=== PATIENT | male | born 1940 | race Caucasian/White ===

== ENCOUNTER → 2016-09-01 | Outpatient (CLI) | payer OTHER ==
[~2016-09-01] MED LIST: LANS15CA21 PO; NAPR-505 PO; SIMV-8 PO
[2016-09-01 13:44] LABS: Urine RBC None Seen /hpf (0 - 3)
[2016-09-01 13:47] LABS: Basophils # (auto) 0.1 uL; Basophils % (auto) 0.7 % (0.0-2.0); Eosinophils # (auto) 0.4 uL; Eosinophils % (auto) 5.4 % (0.0-7.0); Hematocrit 48.1 % (41.0-53.0); Hemoglobin 15.9 g/dL (13.5-17.5); Lymphocytes # (auto) 2.6 uL; Lymphocytes % (auto) 31.8 % (10.0-50.0); Mean Corpuscular Hemoglobin 30.9 pg (28.0-32.0); Mean Corpuscular Hgb Conc. 33.2 g/dL (32.0-36.0); Mean Corpuscular Volume 93.1 fL (80.0-100.0); Mean Platelet Volume 8.6 fL (7.4-10.4); Monocytes # (auto) 0.7 uL; Monocytes % (auto) 8.8 % (0.0-12.0); Neutrophils # (auto) 4.4 uL; Neutrophils % (auto) 53.3 % (37.0-80.0); Platelet Count (auto) 243 10^3/uL (140-450); Red Cell Distribution Width 14.4 % (11.6-16.0); White Blood Cell 8.3 10^3/uL (4.4-10.8)
[2016-09-01 13:50] LABS: Urine Bilirubin Negative (Negative); Urine Blood Negative /uL (Negative); Urine Color Yellow (Yellow); Urine Glucose Normal (Normal); Urine Ketone Negative (Negative); Urine Nitrite Negative (Negative); Urine Urobilinogen Normal (Negative)
[2016-09-01 14:01] LABS: INR 1.04 (0.9-1.15); Partial Thromboplastin Time 26.8 sec (22.64-33.71); Prothrombin Time 10.7 sec (9.37-12.3)
[2016-09-01 14:34] LABS: Albumin 3.9 g/dL (3.4-5.0); BUN/Creatinine Ratio 18.4; Bilirubin, Total 0.5 mg/dL (0.2-1.0); Potassium 4.1 mmol/L (3.5-5.1); Total Protein 7.7 g/dL (6.4-8.2)
== END | disposition home or self-care (01) ==
LOC: LAB 12:49
PROVIDERS: ATTEND Urology
DX: Z01.818 Encounter for other preprocedural examination (principal)
CPT/HCPCS: 36415; 80053; 81001; 85025; 85610; 85730

== ENCOUNTER → 2016-09-22 | Outpatient (CLI) | payer OTHER ==
[2016-09-22 11:53] LABS: Urine Bilirubin Negative (Negative); Urine Color Yellow (Yellow); Urine Glucose Normal (Normal); Urine Ketone Negative (Negative); Urine Mucus FEW (None Seen); Urine Nitrite Negative (Negative); Urine RBC 142 /hpf (0 - 3); Urine pH 5.5 (5.0-8.0)
[2016-09-22 12:03] LABS: INR 1.04 (0.9-1.15); Partial Thromboplastin Time 26.8 sec (22.64-33.71); Prothrombin Time 10.7 sec (9.37-12.3)
[2016-09-22 12:04] LABS: Urine Blood 3+ /uL (Negative)
[2016-09-22 12:14] LABS: Albumin 3.8 g/dL (3.4-5.0); BUN/Creatinine Ratio 23.9; Bilirubin, Total 0.6 mg/dL (0.2-1.0); Calcium 9.1 mg/dL (8.5-10.1); Potassium 4.3 mmol/L (3.5-5.1); Total Protein 7.7 g/dL (6.4-8.2)
[2016-09-22 12:51] LABS: Basophils # (auto) 0.1 uL; Basophils % (auto) 0.8 % (0.0-2.0); Eosinophils # (auto) 0.3 uL; Eosinophils % (auto) 5.4 % (0.0-7.0); Lymphocytes # (auto) 2.3 uL; Lymphocytes % (auto) 36.9 % (10.0-50.0); Monocytes # (auto) 0.4 uL; Monocytes % (auto) 6.6 % (0.0-12.0); Neutrophils # (auto) 3.1 uL; Neutrophils % (auto) 50.3 % (37.0-80.0)
[2016-09-22 13:02] LABS: Hematocrit 53.4 % (41.0-53.0); Mean Corpuscular Hemoglobin 29.7 pg (28.0-32.0); Mean Corpuscular Hgb Conc. 31.8 g/dL (32.0-36.0); Mean Corpuscular Volume 93.3 fL (80.0-100.0); Mean Platelet Volume 8.3 fL (7.4-10.4); Platelet Count (auto) 270 10^3/uL (140-450); White Blood Cell 6.2 10^3/uL (4.4-10.8)
== END | disposition home or self-care (01) ==
LOC: LAB 10:56
PROVIDERS: ATTEND Urology
DX: Z01.818 Encounter for other preprocedural examination (principal)
CPT/HCPCS: 36415; 80053; 81001; 85025; 85610; 85730

== ENCOUNTER 2016-09-26 06:51 | Day surgery (SDC) | payer OTHER ==
[~2016-09-26] VITALS: Ht 188 cm; Wt 101.2 kg
[2016-09-26] MEDS ORDERED: cefTRIAXone SOD 1,000 MG VL ONE (07:18)
[2016-09-26] MEDS ORDERED: MIDAZOLAM HCL 1MG/1ML-2 ML VIAL ONE (07:44)
[2016-09-26] MEDS ORDERED: fentaNYL CITRATE 100 MCG/2 ML VL ONE (07:44)
[2016-09-26] MEDS ORDERED: MEPERIDINE HCL (50 MG/ML) 1 ML VIAL ONE (07:45)
[2016-09-26] MEDS ORDERED: PROPOFOL 10 MG/ML 20 ML IV ONE (07:55)
[2016-09-26] MEDS ORDERED: DEXAMETHASONE SOD PHOS 10MG/1ML VIAL INJ ONE (07:55)
[2016-09-26] MEDS ORDERED: MORPHINE SULF INJ 2 MG/ML SYRINGE 1ML IV PRN (08:30)
[2016-09-26] MEDS ORDERED: ePHEDrine SULFATE 50 MG/ML AMP IV PRN (08:30)
[2016-09-26] MEDS ORDERED: HYDROmorphone HCL 2 MG/ML VL IV PRN (08:30)
[2016-09-26] MEDS ORDERED: MIDAZOLAM HCL 1MG/1ML-2 ML VIAL IV PRN (08:30)
[2016-09-26] MEDS ORDERED: hydrALAZINE HCL 20 MG/ML VL IV PRN (08:30)
[2016-09-26] MEDS ORDERED: KETOROLAC TROMETH 30 MG/ML 1ML VIAL IV ONE (08:30)
[2016-09-26] MEDS ORDERED: ONDANSETRON HCL 4 MG/2 ML VIAL IV ONE (08:30)
[2016-09-26] MEDS ORDERED: LABETALOL HCL 5 MG/ML 4ML SYRINGE IV PRN (08:30)
[2016-09-26 09:36] VITALS: BP 163/88
== END 2016-09-26 09:46 | disposition home or self-care (01) ==
LOC: SUR 06:51
PROVIDERS: ATTEND Urology
DX: N20.0 Calculus of kidney (principal); K21.9 Gastro-esophageal reflux disease without esophagitis; M19.90 Unspecified osteoarthritis, unspecified site; I10 Essential (primary) hypertension; E78.00 Pure hypercholesterolemia, unspecified; E78.5 Hyperlipidemia, unspecified; I25.10 Atherosclerotic heart disease of native coronary artery without angina pectoris; M17.10 Unilateral primary osteoarthritis, unspecified knee
CPT/HCPCS: 50590; 52332; C1769; C2617; J0696; J1100; J2175; J2250; J2704; J3010; J7030

== ENCOUNTER → 2016-10-23 | Outpatient (CLI) | payer OTHER ==
[2016-10-23 14:10] LABS: Basophils # (auto) 0 uL; Basophils % (auto) 0.5 % (0.0-2.0); DEFINITIVE VIEW TRANSMISSION; Eosinophils # (auto) 0.7 uL; Eosinophils % (auto) 8.7 % (0.0-7.0); Hematocrit 45.5 % (41.0-53.0); Hemoglobin 14.9 g/dL (13.5-17.5); Lymphocytes # (auto) 2.2 uL; Mean Corpuscular Hemoglobin 30.5 pg (28.0-32.0); Mean Corpuscular Hgb Conc. 32.7 g/dL (32.0-36.0); Mean Corpuscular Volume 93.2 fL (80.0-100.0); Mean Platelet Volume 8.7 fL (7.4-10.4); Monocytes # (auto) 0.7 uL; Monocytes % (auto) 7.9 % (0.0-12.0); Neutrophils # (auto) 4.7 uL; Neutrophils % (auto) 56.9 % (37.0-80.0); Platelet Count (auto) 258 10^3/uL (140-450); Red Cell Distribution Width 14.9 % (11.6-16.0); White Blood Cell 8.3 10^3/uL (4.4-10.8)
[2016-10-23 14:25] LABS: Urine Bilirubin Negative (Negative); Urine Color Yellow (Yellow); Urine Glucose Normal (Normal); Urine Ketone Negative (Negative); Urine Mucus FEW (None Seen); Urine Nitrite Negative (Negative); Urine RBC 519 /hpf (0 - 3); Urine Squamous Epithelial Cell FEW /hpf (<5); Urine Urobilinogen Normal (Negative)
[2016-10-23 14:35] LABS: Urine Blood 2+ /uL (Negative)
[2016-10-23 14:37] LABS: INR 1.02 (0.9-1.15); Prothrombin Time 10.5 sec (9.37-12.3)
[2016-10-23 14:51] LABS: BUN/Creatinine Ratio 20.9; Bilirubin, Total 0.6 mg/dL (0.2-1.0); Calcium 9.6 mg/dL (8.5-10.1); Total Protein 8.1 g/dL (6.4-8.2)
== END | disposition home or self-care (01) ==
LOC: LAB 11:11
PROVIDERS: ATTEND Urology
DX: Z01.818 Encounter for other preprocedural examination (principal)
CPT/HCPCS: 36415; 80053; 81001; 85025; 85610; 85730

== ENCOUNTER → 2016-10-24 | Day surgery (SDC) | payer OTHER ==
[~2016-10-24] VITALS: Ht 190.5 cm; Wt 98.9 kg
[~2016-10-24] MED LIST changes: +HYDROmorphone HCL 2 MG/ML VL IV PRN; +KETOROLAC TROMETH 30 MG/ML 1ML VIAL IV ONE; -LANS15CA21 PO; +MIDAZOLAM HCL 1MG/1ML-2 ML VIAL ONE; +ONDANSETRON HCL 4 MG/2 ML VIAL ONE; +PROMETHAZINE HCL 25 MG/ML 1ML IM ONE; +PROPOFOL 10 MG/ML 20 ML IV ONE; +cefTRIAXone 1GM/50ML D5W 50 ML IV ONE; +fentaNYL CITRATE 100 MCG/2 ML VL ONE
[2016-10-24] MEDS: LABETALOL HCL 5 MG/ML 4ML SYRINGE IV PRN ×3 (09:04→10:15)
[2016-10-24 11:17] VITALS: BP 166/88
== END ==
LOC: SUR 06:09
PROVIDERS: ATTEND Urology
DX: N20.0 Calculus of kidney (principal); Z90.49 Acquired absence of other specified parts of digestive tract
CPT/HCPCS: 50590; 52310; J0696; J2250; J2405; J2704; J3010; J3490; J7030

== ENCOUNTER → 2016-12-28 | Outpatient (CLI) | payer OTHER ==
[~2016-12-28] MED LIST changes: -HYDROmorphone HCL 2 MG/ML VL IV PRN; -KETOROLAC TROMETH 30 MG/ML 1ML VIAL IV ONE; -MIDAZOLAM HCL 1MG/1ML-2 ML VIAL ONE; -ONDANSETRON HCL 4 MG/2 ML VIAL ONE; -PROMETHAZINE HCL 25 MG/ML 1ML IM ONE; -PROPOFOL 10 MG/ML 20 ML IV ONE; -cefTRIAXone 1GM/50ML D5W 50 ML IV ONE; -fentaNYL CITRATE 100 MCG/2 ML VL ONE
[2016-12-28 09:02] LABS: Basophils # (auto) 0.1 uL; Basophils % (auto) 0.8 % (0.0-2.0); DEFINITIVE VIEW TRANSMISSION; Eosinophils # (auto) 0.8 uL; Eosinophils % (auto) 8.7 % (0.0-7.0); Hematocrit 46.5 % (41.0-53.0); Hemoglobin 15.8 g/dL (13.5-17.5); Lymphocytes # (auto) 2.4 uL; Lymphocytes % (auto) 27.2 % (10.0-50.0); Mean Corpuscular Hemoglobin 30.6 pg (28.0-32.0); Mean Corpuscular Hgb Conc. 34.1 g/dL (32.0-36.0); Mean Corpuscular Volume 89.9 fL (80.0-100.0); Mean Platelet Volume 8.3 fL (7.4-10.4); Monocytes # (auto) 0.6 uL; Monocytes % (auto) 6.7 % (0.0-12.0); Neutrophils % (auto) 56.6 % (37.0-80.0); Platelet Count (auto) 244 10^3/uL (140-450); Red Cell Distribution Width 15.1 % (11.6-16.0); White Blood Cell 8.8 10^3/uL (4.4-10.8)
[2016-12-28 09:06] LABS: Urine Bilirubin Negative (Negative); Urine Blood Negative /uL (Negative); Urine Color Yellow (Yellow); Urine Glucose Normal (Normal); Urine Ketone Negative (Negative); Urine Mucus FEW (None Seen); Urine Nitrite Negative (Negative); Urine RBC 1 /hpf (0 - 3); Urine Urobilinogen Normal (Negative); Urine pH 5.5 (5.0-8.0)
[2016-12-28 09:26] LABS: Albumin 3.9 g/dL (3.4-5.0); BUN/Creatinine Ratio 31.8; Bilirubin, Total 0.7 mg/dL (0.2-1.0); Calcium 8.8 mg/dL (8.5-10.1); Potassium 4.2 mmol/L (3.5-5.1); Total Protein 7.9 g/dL (6.4-8.2)
== END | disposition home or self-care (01) ==
LOC: LAB 07:56
PROVIDERS: ATTEND Family Medicine
DX: E78.5 Hyperlipidemia, unspecified (principal)
CPT/HCPCS: 36415; 80053; 80061; 81001; 82607; 85025

== ENCOUNTER → 2017-04-27 | Day surgery (SDC) | payer OTHER ==
[2017-04-24 13:52] LABS: Basophils # (auto) 0.1 uL; Basophils % (auto) 0.8 % (0.0-2.0); Eosinophils # (auto) 0.5 uL; Eosinophils % (auto) 5.8 % (0.0-7.0); Hematocrit 46.8 % (41.0-53.0); Hemoglobin 15.7 g/dL (13.5-17.5); Lymphocytes # (auto) 2.6 uL; Lymphocytes % (auto) 33.6 % (10.0-50.0); Mean Corpuscular Hemoglobin 31.8 pg (28.0-32.0); Mean Corpuscular Hgb Conc. 33.6 g/dL (32.0-36.0); Mean Corpuscular Volume 94.6 fL (80.0-100.0); Mean Platelet Volume 7.7 fL (6.9-10.8); Monocytes # (auto) 0.5 uL; Neutrophils # (auto) 4.2 uL; Neutrophils % (auto) 53.8 % (37.0-80.0); Nucleated Red Blood Cells % 0.1 %; Platelet Count (auto) 187 10^3/uL (140-450); Red Cell Distribution Width 14.7 % (11.8-14.3); White Blood Cell 7.9 10^3/uL (4.4-10.8)
[2017-04-24 14:06] LABS: INR 0.97 (0.9-1.15); Partial Thromboplastin Time 27.2 sec (22.64-33.71); Prothrombin Time 10.6 sec (9.37-12.3)
[2017-04-24 14:08] LABS: Urine Bilirubin Negative (Negative); Urine Blood Negative /uL (Negative); Urine Color Yellow (Yellow); Urine Glucose Normal (Normal); Urine Hyaline Cast FEW /lpf (0 - 2); Urine Ketone Negative (Negative); Urine Mucus FEW (None Seen); Urine Nitrite Negative (Negative); Urine RBC 1 /hpf (0 - 3); Urine Urobilinogen Normal (Negative)
[2017-04-24 14:18] LABS: BUN/Creatinine Ratio 20.4; Calcium 9.3 mg/dL (8.5-10.1)
[2017-04-24 14:21] LABS: Bilirubin, Total 0.6 mg/dL (0.2-1.0); Total Protein 7.8 g/dL (6.4-8.2)
[~2017-04-27] VITALS: Ht 188 cm; Wt 102.1 kg
[~2017-04-27] MED LIST changes: +BUPIVACAINE 0.25% INJ 50ML VIAL ONE; +BUPIVACAINE 0.5% P/F INJ 10 ML VIAL ONE; +BUPIVACAINE 0.75% INJ 10ML MPV SDV IJ ONE; +BUPIVACAINE W/ EPINEPH 0.25% INJ 50ML MDV ONE; +BUPIVACAINE W/ EPINEPH 0.5% MPF 30ML VIAL IJ ONE; +CLINDAMYCIN 600MG IV 50 ML IV ONE; +LIDOCAINE 1% HCL (LOCAL ANESTH.) INJ 20ML MDV ONE; +MIDAZOLAM HCL 1MG/1ML-2 ML VIAL ONE; +PROPOFOL 10 MG/ML 20 ML IV ONE; +fentaNYL CITRATE 100 MCG/2 ML VL IV PRN; +fentaNYL CITRATE 100 MCG/2 ML VL ONE; +hydrALAZINE HCL 20 MG/ML VL IV PRN
[2017-04-27 09:14] VITALS: BP 150/77
== END | disposition home or self-care (01) ==
LOC: SUR 06:09
PROVIDERS: ATTEND Orthopaedic Surgery
DX: G56.01 Carpal tunnel syndrome, right upper limb (principal); S63.8X1A Sprain of other part of right wrist and hand, initial encounter; X58.XXXA Exposure to other specified factors, initial encounter; Y93.89 Activity, other specified; Y92.89 Other specified places as the place of occurrence of the external cause; Y99.8 Other external cause status; Z88.0 Allergy status to penicillin; Z88.3 Allergy status to other anti-infective agents; Z90.49 Acquired absence of other specified parts of digestive tract
CPT/HCPCS: 26037; 36415; 64721; 80053; 81001; 85025; 85610; 85730; J2001; J2250; J2704; J3010; J3490

== ENCOUNTER 2017-06-05 06:13 | Day surgery (SDC) | payer OTHER ==
[2017-06-01 11:58] LABS: Basophils # (auto) 0.1 uL; Basophils % (auto) 1.2 % (0.0-2.0); Eosinophils # (auto) 0.5 uL; Eosinophils % (auto) 5.9 % (0.0-7.0); Hematocrit 47.4 % (41.0-53.0); Hemoglobin 16.3 g/dL (13.5-17.5); Lymphocytes # (auto) 2.7 uL; Lymphocytes % (auto) 30.3 % (10.0-50.0); Mean Corpuscular Hemoglobin 32.2 pg (28.0-32.0); Mean Corpuscular Hgb Conc. 34.4 g/dL (32.0-36.0); Mean Corpuscular Volume 93.5 fL (80.0-100.0); Mean Platelet Volume 8.1 fL (6.9-10.8); Monocytes # (auto) 0.8 uL; Monocytes % (auto) 9.1 % (0.0-12.0); Neutrophils # (auto) 4.7 uL; Neutrophils % (auto) 53.5 % (37.0-80.0); Nucleated Red Blood Cells % 0.1 %; Platelet Count (auto) 193 10^3/uL (140-450); White Blood Cell 8.8 10^3/uL (4.4-10.8)
[2017-06-01 12:03] LABS: Urine Bilirubin Negative (Negative); Urine Blood Negative /uL (Negative); Urine Color Yellow (Yellow); Urine Glucose Normal (Normal); Urine Ketone Negative (Negative); Urine Mucus FEW (None Seen); Urine Nitrite Negative (Negative); Urine RBC 1 /hpf (0 - 3); Urine Squamous Epithelial Cell FEW /hpf (<5); Urine Urobilinogen Normal (Negative); Urine pH 5.5 (5.0-8.0)
[2017-06-01 12:11] LABS: BUN/Creatinine Ratio 22.2; Calcium 9.3 mg/dL (8.5-10.1); Potassium 4.2 mmol/L (3.5-5.1)
[2017-06-01 12:13] LABS: INR 0.96 (0.9-1.15); Partial Thromboplastin Time 28.9 sec (22.64-33.71); Prothrombin Time 10.5 sec (9.37-12.3)
[~2017-06-05] VITALS: Ht 188 cm; Wt 105.2 kg
[~2017-06-05 06:13] MED LIST changes: -BUPIVACAINE 0.25% INJ 50ML VIAL ONE; -BUPIVACAINE 0.5% P/F INJ 10 ML VIAL ONE; -BUPIVACAINE 0.75% INJ 10ML MPV SDV IJ ONE; -BUPIVACAINE W/ EPINEPH 0.25% INJ 50ML MDV ONE; -BUPIVACAINE W/ EPINEPH 0.5% MPF 30ML VIAL IJ ONE; -CLINDAMYCIN 600MG IV 50 ML IV ONE; -LIDOCAINE 1% HCL (LOCAL ANESTH.) INJ 20ML MDV ONE; -MIDAZOLAM HCL 1MG/1ML-2 ML VIAL ONE; -PROPOFOL 10 MG/ML 20 ML IV ONE; -fentaNYL CITRATE 100 MCG/2 ML VL IV PRN; -fentaNYL CITRATE 100 MCG/2 ML VL ONE; -hydrALAZINE HCL 20 MG/ML VL IV PRN
[2017-06-05] MEDS ORDERED: BUPIVACAINE W/ EPINEPH 0.25% INJ 50ML MDV ONE (06:35)
[2017-06-05] MEDS ORDERED: BUPIVACAINE 0.25% INJ 50ML VIAL ONE (06:36)
[2017-06-05] MEDS ORDERED: CLINDAMYCIN 600MG IV 50 ML IV ONE (07:28)
[2017-06-05] MEDS ORDERED: LIDOCAINE 1% HCL (LOCAL ANESTH.) INJ 20ML MDV ONE (07:32)
[2017-06-05] MEDS ORDERED: fentaNYL CITRATE 100 MCG/2 ML VL ONE (07:33)
[2017-06-05] MEDS ORDERED: LIDOCAINE HCL 2 %PF INJ 10ML AMP IJ ONE (07:34)
[2017-06-05] MEDS ORDERED: PROPOFOL 10 MG/ML 20 ML IV ONE (07:34)
[2017-06-05] MEDS ORDERED: METOPROLOL TARTRATE 1MG/1ML-5ML VIAL IV ONE (07:37)
[2017-06-05] MEDS ORDERED: diphenhdrAMINE HCL 50 MG/1 ML VL ONE (07:43)
[2017-06-05 08:46] VITALS: BP 161/93
== END 2017-06-05 08:56 | disposition home or self-care (01) ==
LOC: SUR 06:13
PROVIDERS: ATTEND Orthopaedic Surgery
DX: G56.02 Carpal tunnel syndrome, left upper limb (principal); M72.8 Other fibroblastic disorders; D69.6 Thrombocytopenia, unspecified; Z90.49 Acquired absence of other specified parts of digestive tract; Z88.0 Allergy status to penicillin
CPT/HCPCS: 25020; 36415; 64721; 80048; 81001; 85025; 85610; 85730; J1200; J2001; J2704; J3010; J3490

== ENCOUNTER → 2017-12-14 | Outpatient (CLI) | payer OTHER ==
[2017-12-14 09:01] LABS: Basophils # (auto) 0.1 uL; Basophils % (auto) 0.7 % (0.0-2.0); Eosinophils # (auto) 0.3 uL; Eosinophils % (auto) 3.9 % (0.0-7.0); Hematocrit 48.1 % (41.0-53.0); Hemoglobin 16.3 g/dL (13.5-17.5); Lymphocytes # (auto) 2.1 uL; Lymphocytes % (auto) 28.7 % (10.0-50.0); Mean Corpuscular Hemoglobin 31.7 pg (28.0-32.0); Mean Corpuscular Volume 93.4 fL (80.0-100.0); Monocytes # (auto) 0.6 uL; Monocytes % (auto) 8.9 % (0.0-12.0); Neutrophils # (auto) 4.2 uL; Neutrophils % (auto) 57.8 % (37.0-80.0); Platelet Count (auto) 193 10^3/uL (140-450); Red Blood Cells 5.15 10^6/uL (4.5-5.90); White Blood Cell 7.3 10^3/uL (4.4-10.8)
[2017-12-14 09:06] LABS: Urine Bacteria FEW /hpf (None Seen); Urine Blood Negative /uL (Negative); Urine Hyaline Cast FEW /lpf (0 - 2); Urine Mucus FEW (None Seen); Urine Specific Gravity 1.022 (1.001-1.035); Urine WBC 2 /hpf (0 - 3)
[2017-12-14 09:29] LABS: Bilirubin, Total 0.7 mg/dL (0.2-1.0); Calcium 9.6 mg/dL (8.5-10.1); Potassium 4.4 mmol/L (3.5-5.1); Total Protein 8.1 g/dL (6.4-8.2)
== END | disposition home or self-care (01) ==
LOC: LAB 07:53
PROVIDERS: ATTEND Family Medicine
DX: E55.9 Vitamin D deficiency, unspecified (principal); E78.5 Hyperlipidemia, unspecified; N40.0 Benign prostatic hyperplasia without lower urinary tract symptoms; I10 Essential (primary) hypertension; E78.00 Pure hypercholesterolemia, unspecified
CPT/HCPCS: 36415; 80053; 80061; 81001; 82306; 84153; 84154; 85025

== ENCOUNTER → 2018-03-21 | Outpatient (CLI) | payer OTHER ==
[2018-03-21 14:44] LABS: Calcium 8.9 mg/dL (8.5-10.1); Potassium 3.9 mmol/L (3.5-5.1)
== END | disposition home or self-care (01) ==
LOC: LAB 14:09
PROVIDERS: ATTEND Urology
DX: C61 Malignant neoplasm of prostate (principal)
CPT/HCPCS: 36415; 80048

== ENCOUNTER → 2018-03-22 | Outpatient (CLI) | payer OTHER ==
[~2018-03-22] MED LIST changes: +IOHEXOL 300 MG/ML 100ML BOTTLE IJ ONE
== END | disposition home or self-care (01) ==
LOC: XY 07:33
PROVIDERS: ATTEND Urology
DX: C61 Malignant neoplasm of prostate (principal); I70.90 Unspecified atherosclerosis; N20.0 Calculus of kidney; I77.811 Abdominal aortic ectasia; Z88.0 Allergy status to penicillin; Z88.1 Allergy status to other antibiotic agents
CPT/HCPCS: 74177; 78306; A9503; Q9967

== ENCOUNTER 2018-07-28 01:48 | Emergency (ER) | payer OTHER, MEDICARE ==
[~2018-07-28] VITALS: Ht 188 cm; Wt 99.8 kg
[~2018-07-28 01:48] MED LIST changes: -IOHEXOL 300 MG/ML 100ML BOTTLE IJ ONE
[2018-07-28 08:57] LABS: Urine Bacteria NONE SEEN /hpf (None Seen); Urine Blood 2+ /uL (Negative); Urine Specific Gravity 1.024 (1.001-1.035); Urine WBC 7 /hpf (0 - 3)
[2018-07-28 09:21] LABS: Basophils # (auto) 0.1 uL; Basophils % (auto) 0.6 % (0.0-2.0); Eosinophils # (auto) 0.2 uL; Eosinophils % (auto) 2.2 % (0.0-7.0); Hematocrit 49.9 % (41.0-53.0); Hemoglobin 16.8 g/dL (13.5-17.5); Lymphocytes # (auto) 1.2 uL; Lymphocytes % (auto) 12.2 % (10.0-50.0); Mean Corpuscular Hemoglobin 32.4 pg (28.0-32.0); Mean Corpuscular Hgb Conc. 33.7 g/dL (32.0-36.0); Mean Corpuscular Volume 96.2 fL (80.0-100.0); Monocytes % (auto) 10.2 % (0.0-12.0); Neutrophils # (auto) 7.4 uL; Neutrophils % (auto) 74.8 % (37.0-80.0); Platelet Count (auto) 190 10^3/uL (140-450); Red Blood Cells 5.19 10^6/uL (4.5-5.90); Red Cell Distribution Width 14.4 % (11.8-14.3); White Blood Cell 9.9 10^3/uL (4.4-10.8)
[2018-07-28 09:25] LABS: Albumin 4.4 g/dL (3.4-5.0); BUN/Creatinine Ratio 19.2; Calcium 9.2 mg/dL (8.5-10.1); Magnesium 2.6 mg/dL (1.6-2.6)
[2018-07-28 10:03] LABS: Bilirubin, Total 1.6 mg/dL (0.2-1.0); Potassium 4.1 mmol/L (3.5-5.1); Total Protein 8.5 g/dL (6.4-8.2)
[2018-07-28] MEDS ORDERED: SODIUM CHLORIDE 0.9% 1,000 ML IV ONE (11:27)
[2018-07-28] MEDS ORDERED: HYDROmorphone HCL 2 MG/ML VL IV ONE (11:30)
[2018-07-28] MEDS ORDERED: PROMETHAZINE HCL 25 MG/ML 1ML IV PRN (11:30)
[2018-07-28 13:52] VITALS: BP 150/79
== END 2018-07-28 15:47 | disposition home or self-care (01) ==
LOC: ER 01:48
DX: N20.1 Calculus of ureter (principal); K76.0 Fatty (change of) liver, not elsewhere classified; R74.8 Abnormal levels of other serum enzymes; E78.5 Hyperlipidemia, unspecified; Z85.46 Personal history of malignant neoplasm of prostate; Z90.49 Acquired absence of other specified parts of digestive tract; Z88.0 Allergy status to penicillin
CPT/HCPCS: 36415; 71045; 74176; 80053; 81001; 83690; 83735; 83880; 84443; 84484; 85025; 93005; 96374; 96375; 99284; J1170; J2550; J7030

== ENCOUNTER → 2018-08-28 | Outpatient (CLI) | payer MEDICARE, OTHER | END | disposition home or self-care (01) | LOC: XYW 08:47 | PROVIDERS: ATTEND Orthopaedic Surgery | DX: Z01.818 Encounter for other preprocedural examination (principal); M16.12 Unilateral primary osteoarthritis, left hip | CPT/HCPCS: 93306 ==

== ENCOUNTER → 2018-09-05 | Outpatient (CLI) | payer OTHER ==
[2018-09-05 08:18] LABS: Basophils # (auto) 0.1 uL; Basophils % (auto) 1.2 % (0.0-2.0); Eosinophils # (auto) 0.7 uL; Eosinophils % (auto) 9.8 % (0.0-7.0); Hematocrit 44.1 % (41.0-53.0); Hemoglobin 15.4 g/dL (13.5-17.5); Lymphocytes # (auto) 1.3 uL; Lymphocytes % (auto) 18.6 % (10.0-50.0); Mean Corpuscular Hemoglobin 32.9 pg (28.0-32.0); Mean Corpuscular Volume 93.9 fL (80.0-100.0); Monocytes # (auto) 0.5 uL; Monocytes % (auto) 7.6 % (0.0-12.0); Neutrophils # (auto) 4.4 uL; Neutrophils % (auto) 62.8 % (37.0-80.0); Nucleated Red Blood Cells % 0.1 %; Platelet Count (auto) 195 10^3/uL (140-450); Red Cell Distribution Width 14.1 % (11.8-14.3)
[2018-09-05 08:25] LABS: Urine Bacteria NONE SEEN /hpf (None Seen); Urine Blood Negative /uL (Negative); Urine Hyaline Cast FEW /lpf (0 - 2); Urine Mucus FEW (None Seen); Urine Specific Gravity 1.022 (1.001-1.035); Urine WBC 2 /hpf (0 - 3)
[2018-09-05 09:02] LABS: Potassium 4.2 mmol/L (3.5-5.1)
[2018-09-05 09:08] LABS: Albumin 4.1 g/dL (3.4-5.0); BUN/Creatinine Ratio 31.6; Bilirubin, Total 0.8 mg/dL (0.2-1.0); Calcium 9.3 mg/dL (8.5-10.1); Total Protein 8.1 g/dL (6.4-8.2)
== END | disposition home or self-care (01) ==
LOC: LAB 07:53
PROVIDERS: ATTEND Nurse Practitioner
DX: E78.5 Hyperlipidemia, unspecified (principal)
CPT/HCPCS: 36415; 80053; 80061; 81001; 84439; 84443; 85025

== ENCOUNTER 2018-09-24 12:32 | Inpatient (IN) | payer OTHER ==
[2018-09-19 10:50] LABS: Basophils # (auto) 0.1 uL; Basophils % (auto) 0.9 % (0.0-2.0); Eosinophils # (auto) 0.5 uL; Eosinophils % (auto) 7.3 % (0.0-7.0); Hematocrit 47.8 % (41.0-53.0); Lymphocytes # (auto) 1.5 uL; Lymphocytes % (auto) 21.7 % (10.0-50.0); Mean Corpuscular Hemoglobin 32.4 pg (28.0-32.0); Mean Corpuscular Hgb Conc. 33.5 g/dL (32.0-36.0); Mean Corpuscular Volume 96.6 fL (80.0-100.0); Monocytes # (auto) 0.6 uL; Monocytes % (auto) 9.4 % (0.0-12.0); Neutrophils # (auto) 4.1 uL; Neutrophils % (auto) 60.7 % (37.0-80.0); Nucleated Red Blood Cells % 0.1 %; Platelet Count (auto) 188 10^3/uL (140-450); Red Blood Cells 4.95 10^6/uL (4.5-5.90); Red Cell Distribution Width 14.4 % (11.8-14.3); White Blood Cell 6.7 10^3/uL (4.4-10.8)
[2018-09-19 11:14] LABS: INR 0.94 (0.9-1.15); Partial Thromboplastin Time 28.7 sec (23.78-33.04); Prothrombin Time 10.1 sec (9.27-12.13)
[2018-09-19 11:18] LABS: Urine Blood TRACE /uL (Negative); Urine Specific Gravity 1.023 (1.001-1.035)
[2018-09-19 12:15] LABS: Potassium 4.5 mmol/L (3.5-5.1)
[2018-09-19 12:26] LABS: Albumin 4.2 g/dL (3.4-5.0); BUN/Creatinine Ratio 22.3; Bilirubin, Total 0.9 mg/dL (0.2-1.0); Calcium 9.3 mg/dL (8.5-10.1); Total Protein 8.2 g/dL (6.4-8.2)
[~2018-09-24] VITALS: Ht 188 cm; Wt 97.5 kg
[~2018-09-24 12:32] MED LIST changes: +MELA3TAB27 PO
[2018-09-24] MEDS ORDERED: PHENYLEPHRINE HCL 10 MG/ML VL IV ONE (17:01)
[2018-09-24] MEDS ORDERED: TETRACAINE 1% INJ 2 ML VIAL IJ ONE (17:04)
[2018-09-24] MEDS ORDERED: MIDAZOLAM HCL 1MG/1ML-2 ML VIAL ONE ×2 (17:05→17:43)
[2018-09-24] MEDS ORDERED: fentaNYL CITRATE 100 MCG/2 ML VL ONE (17:05)
[2018-09-24] MEDS ORDERED: MORPHINE SULF(PF) 0.5MG/ML 10ML VIAL ONE (17:05)
[2018-09-24] MEDS ORDERED: CLINDAMYCIN 600MG IV 50 ML IV ONE (17:11)
[2018-09-24] MEDS ORDERED: DEXAMETHASONE SOD PHOS 10MG/1ML VIAL INJ ONE (17:43)
[2018-09-24] MEDS ORDERED: PROPOFOL 10 MG/ML 20 ML IV ONE (17:43)
[2018-09-24] MEDS ORDERED: ePHEDrine SULFATE 50 MG/ML AMP IV PRN (18:15)
[2018-09-24] MEDS ORDERED: LABETALOL HCL 5 MG/ML 4ML SYRINGE IV PRN (18:15)
[2018-09-24] MEDS ORDERED: NALOXONE HCL 0.4 MG/ML VIAL IV PRN (18:15)
[2018-09-24] MEDS ORDERED: ONDANSETRON HCL 4 MG/2 ML VIAL IV PRN (18:15)
[2018-09-24] MEDS ORDERED: DEXAMETHASONE SOD PHOS 10MG/1ML VIAL INJ IV PRN (18:15)
[2018-09-24] MEDS ORDERED: diphenhdrAMINE HCL 50 MG/1 ML VL IV PRN (18:15)
[2018-09-24] MEDS ORDERED: HYDROmorphone HCL 2 MG/ML VL IV PRN ×2 (18:15→20:15)
[2018-09-24] MEDS ORDERED: NALBUPHINE HCL 10 MG/1ml INJECTION SUBCUT ONE (18:15)
[2018-09-24] MEDS ORDERED: KETOROLAC TROMETH 30 MG/ML 1ML VIAL IV PRN (18:15)
[2018-09-24] MEDS ORDERED: MIDAZOLAM HCL 1MG/1ML-2 ML VIAL IV PRN (18:15)
[2018-09-24] MEDS ORDERED: LACTATED RINGER'S 1,000 ML IV SCH (20:07)
[2018-09-24] MEDS ORDERED: ACETAMINOPHEN 325 MG TAB PO PRN (20:15)
[2018-09-24] MEDS ORDERED: HYDROcodone-ACET 10/325MG TAB PO PRN (20:15)
[2018-09-24] MEDS ORDERED: NITROGLYCERIN 0.4 MG SL TAB SL PRN (20:15)
[2018-09-24] MEDS ORDERED: MORPHINE SULFATE 4 MG/ML SYR/VIAL IV PRN (20:15)
[2018-09-24] MEDS ORDERED: TEMAZEPAM 15 MG CAP PO PRN (20:15)
[2018-09-24] MEDS: SODIUM CHLOR 0.9% PF (SALINE LOCK) 10ML VIAL/SYR IV SCH (21:32)
[2018-09-24] MEDS: CLINDAMYCIN 600MG IV 50 ML IV SCH (21:32)
[2018-09-24] MEDS: DOCUSATE SOD 100 MG CAP PO SCH (21:35)
[2018-09-24 22:00] VITALS: BP 91/60
[2018-09-25 00:37] VITALS: BP 91/60
[2018-09-25 05:00] VITALS: BP 102/67
[2018-09-25] MEDS: CLINDAMYCIN 600MG IV 50 ML IV SCH ×2 (05:28→13:27)
[2018-09-25] MEDS: SODIUM CHLOR 0.9% PF (SALINE LOCK) 10ML VIAL/SYR IV SCH ×3 (05:40→22:55)
--- NOTE | 2018-09-25 06:21 | NUR ---
Telemetry admit from ER [facility] VO admitted to Telemetry unit after SBAR received. Patient oriented to TERRIE MARIE, primary RN, unit, room, bed, and unit policies regarding patient care and visiting hours. Patient now on continuous telemetry monitoring, tele box # 39 and telemetry reading on arrival to unit is normal sinus. Patient placed on bedside oxygen, weighed by bedscale and encouraged to call if they need something. All questions and concerns addressed, patient verbalized understanding.
--- NOTE | 2018-09-25 06:23 | NUR ---
ROUNDING PATIENT RESTING IN BED. VITALS HAVE BEEN STABLE THROUGHOUT THE EVENING. NO S/S OF DISTRESS OR COMPLAINTS OF PAIN. BED IN LOWEST LOCKED POSITION AND CALL BEN W/IN REACH. GELLER CURRENTLY PATENT AND DRAINING. PATIENT REQUESTING TO WAIT TILL LATER TO D/C. CARE TO BE ENDORSED TO DAY RN.
[2018-09-25 08:00] VITALS: BP 133/82
--- NOTE | 2018-09-25 08:08 | NUR ---
Opening Shift Note Assumed care of patient, awake and alert, lying on bed resting comfortably. No S/S of distress/SOB, pt verbalized pain is 3/10 at this time . Noted post op wound dressing soaked with blood, will change dressing as ordered. Instructed on POC and to call for assist PRN, will continue to monitor for changes Q1hr and PRN.
--- NOTE | 2018-09-25 09:24 | NUR ---
dressing noted dressing moderately soaked with blood, dressing changed. will continue to monitor for bleeding.
[2018-09-25] MEDS: DOCUSATE SOD 100 MG CAP PO SCH ×2 (09:41→22:55)
--- NOTE | 2018-09-25 10:15 | NUR ---
PT AMBULATED IN THE HALLWAY USING WALKER WITH PHYSICAL THERAPIST.
[2018-09-25 10:40] LABS: Hematocrit 40.8 % (41.0-53.0); Hemoglobin 13.5 g/dL (13.5-17.5)
[2018-09-25] MEDS: ENOXAPARIN SOD 40 MG/0.4 ML SYRINGE SC SCH (11:38)
[2018-09-25] MEDS ORDERED: HYDROmorphone HCL 2 MG/ML VL IV PRN (12:00)
[2018-09-25] MEDS ORDERED: PANTOPRAZOLE 40 MG TAB PO ONE (12:00)
--- NOTE | 2018-09-25 12:07 | NUR ---
Ruiz catheter dc'd Order to discontinue ruiz catheter. Ruiz dc'd with clean technique following deflation of balloon. Patient tolerated well with no complaints of pain. Continue care. urine output 250ml.
--- NOTE | 2018-09-25 12:08 | NUR ---
TELEMETRY BOX RETURN TO [facility]. PT DOWNGRADED TO MEDSURG PER DR. EDWARDS.
[2018-09-25 13:00] VITALS: BP 133/80
[2018-09-25 17:00] VITALS: BP 124/74
--- NOTE | 2018-09-25 17:45 | NUR ---
DRESSING MODERATELY SOAKED WITH BLOOD, DRESSING CHANGED. WILL CONTINUE TO MONITOR.
--- NOTE | 2018-09-25 17:50 | NUR ---
PT HAS NO URINE OUTPUT SINCE GELLER CATHETER WAS REMOVED, BLADDER SCANNED AND NOTED 189ML, PT VERBALIZED HE HAS NO URGE TO URINATE AT THIS TIME, WILL CONTINUE TO MONITOR.
[2018-09-25 22:00] VITALS: BP 132/68
[2018-09-26] VITALS (7 sets, daily range): BP systolic 125–146; BP diastolic 64–80
[2018-09-26] MEDS: SODIUM CHLOR 0.9% PF (SALINE LOCK) 10ML VIAL/SYR IV SCH ×3 (06:00→21:20)
--- NOTE | 2018-09-26 08:00 | NUR ---
Opening Shift Note Assumed care of patient, awake, alert, and oriented x4. Patient has no complaints of pain at this time. Patient has IV in left hand 22g saline locked and flushing well, patient tolerating well. Patient is on room air with no S/S of distress/SOB. Patient has left hip incision, dressing CDI. Instructed on POC and to call for assist PRN, will continue to monitor for changes Q1hr and PRN. Bed in lowest locked position, call light within reach. Sitter at bedside.
[2018-09-26 08:05] LABS: Hematocrit 34.1 % (41.0-53.0); Hemoglobin 11.7 g/dL (13.5-17.5)
[2018-09-26 08:24] LABS: Calcium 8.3 mg/dL (8.5-10.1); Potassium 4.1 mmol/L (3.5-5.1)
[2018-09-26 08:31] LABS: Albumin 3.3 g/dL (3.4-5.0); BUN/Creatinine Ratio 33.3; Total Protein 6.7 g/dL (6.4-8.2)
[2018-09-26] MEDS: PANTOPRAZOLE 40 MG TAB PO SCH (09:38)
[2018-09-26] MEDS: ENOXAPARIN SOD 40 MG/0.4 ML SYRINGE SC SCH (09:38)
[2018-09-26] MEDS: DOCUSATE SOD 100 MG CAP PO SCH ×2 (09:38→21:20)
--- NOTE | 2018-09-26 11:12 | NUR ---
DRESSING CHANGE DRESSING TO LEFT HIP STARTING TO FALL OFF. DRESSING CHANGED TO LEFT HIP. MINIMAL AMOUNT OF SEROSANGUINEOUS DRAINAGE NOTED. INCISION SITE CLEANSED WITH WOUND CLEANSER, PATTED DRY WITH STERILE GAUZE, COVERED WITH PRIMAPORE DRESSING. PATIENT TOLERATED WELL.
--- NOTE | 2018-09-26 18:39 | NUR ---
END OF SHIFT PATIENT RESTING IN BED. NO S/S OF DISTRESS. INSTRUCTED PATIENT TO CALL PRN. BED IN LOWEST LOCKED POSITION, CALL LIGHT WITHIN REACH. ENDORSED CARE TO LARRY BARRIOS. SITTER AT BEDSIDE.
--- NOTE | 2018-09-26 19:10 | NUR ---
ASSUMED PATIENT CARE- NOC SHIFT PATIENT IS ALERT AND ORIENTED TO SELF, PLACE AND SITUATION BUT IS UNCERTAIN OF DATE OR TIME. NURSE CORRECTION OFFICER REFORMATORY STAYS WITH PATIENT FOR SAFETY PRECAUTIONS DO TO EPISODES OF CONFUSION WHERE PATIENT HAS GOTTEN OUT OF BED PER REPORT; MD IS AWARE. PATIENT IS IN BED, BED IS LOCKED IN LOWEST POSITION, BED RAILS UP X2 AND HEAD OF BED IS UP >30 DEGREES FOR SAFETY PRECAUTION. BEDSIDE TABLE WITHIN REACH, CALL LIGHT WITHIN REACH. DISCUSSED POC WITH PATIENT AND INSTRUCTED PATIENT TO CALL AND ASK FOR ASSISTANCE PRN. PATIENT IS STATUS POST LEFT HIP ORTHOPLASTY. DRESSING WAS CHANGED EARLIER TODAY PER DAY SHIFT NURSE REPORT. DRESSING HAS SMALL AMOUNT OF DRAINAGE WHICH I CIRCLED; WILL CONTINUE TO MONITOR Q1H AND PRN. NO S/SX OF DISTRESS, SOB OR PAIN.
[2018-09-27 04:30] VITALS: BP 146/71
[2018-09-27] MEDS: SODIUM CHLOR 0.9% PF (SALINE LOCK) 10ML VIAL/SYR IV SCH ×3 (05:25→21:27)
--- NOTE | 2018-09-27 07:30 | NUR ---
Opening Shift Note Assuming care of patient at this time. Patient is awake and alert, resting in bed. Bed is locked and lowered with side rails up x2. Patient shows no signs or symptoms of distress at this time. Patient instructed on the plan of care for today and to call for assistance as needed. Call light within reach. Sitter at bedside. Will continue to monitor.
[2018-09-27 08:33] LABS: Hemoglobin 12.2 g/dL (13.5-17.5)
[2018-09-27] MEDS: DOCUSATE SOD 100 MG CAP PO SCH ×2 (09:57→21:27)
[2018-09-27] MEDS: PANTOPRAZOLE 40 MG TAB PO SCH (09:57)
[2018-09-27] MEDS: ENOXAPARIN SOD 40 MG/0.4 ML SYRINGE SC SCH (09:58)
[2018-09-27 13:00] VITALS: BP 140/75
--- NOTE | 2018-09-27 15:59 | NUR ---
assessment Patient is a 78 year old male who is alert and oriented. Patients cognitive abilities are intact. Prior to admission patient lived home with his Nerissa and functioned independently. Patient informed me he is able to care for his own ADLs. Per patient he will return home to his prior living arrangements post discharge and Nerissa will transport him home. Patient has been admitted for hip surgery. Patient has a fww and a cane for home use. Patient PCP is Dr Zaragoza. Patient will need home health for PT on discharge. I informed patient he has a right to speak to a manager social media regarding all care. I informed patient he has a right to participate in any and all discharge planning. Patient is aware of visiting hours on the hospital floor. I informed patient he has a right to privacy. Patient does not have a POA and advanced directive. I have offered patient information on POA and advanced directives. I informed the patient the advantages and benefits of having an Advanced Directive. Patient verbalized understanding and agreed to discharge plan. Addendum: 09/27/18 at 1603 by Katrin HIGHTOWER Amended: Links added.
--- NOTE | 2018-09-27 16:01 | NUR ---
re-assessment Per consult home health for PT. Dorita upper caser is satisfying order with Wilber Regan Addendum: 09/27/18 at 1603 by Katrin Kiser Amended: Links added.
[2018-09-27 17:00] VITALS: BP 120/77
--- NOTE | 2018-09-27 17:05 | NUR ---
Re: Salt Washer Per case management, Dorita Rowland, patient is clear for discharge. Meraux to contact patient to set up home health. Will discharge per doctor's orders.
--- NOTE | 2018-09-27 17:30 | NUR ---
Re: Hold discharge Dr. Finley at bedside. Dr. Finley has requested to hold discharge at this time so that patient can have one more session of physical therapy. Will hold discharge per doctor's orders and continue to monitor.
--- NOTE | 2018-09-27 19:10 | NUR ---
ASSUMED PATIENT CARE- NOC SHIFT PATIENT IS ALERT AND ORIENTED X4, NO S/SX OF DISTRESS OR SOB. PATIENT REPORTS GENERALIZED PAIN OF 7/10. PATIENT IS IN BED, BED IS LOCKED IN LOWEST POSITION. BED RAILS UP X2 AND HEAD OF BED IS UP >30 DEGREES FOR SAFETY PRECAUTIONS. BEDSIDE TABLE WITHIN REACH, CALL LIGHT WITHIN REACH. DISCUSSED POC WITH PATIENT AND INSTRUCTED PATIENT TO CALL PRN; PATIENT VERBALIZED UNDERSTANDING. WILL CONTINUE TO MONITOR Q1H AND PRN. NURSE CORRESPONDENCE SPECIALIST IS WITH PATIENT IN ROOM FOR PREVIOUS EPISODES OF CONFUSION.
--- NOTE | 2018-09-27 19:22 | NUR ---
Closing Shift Note Patient is resting in bed. Patient and production shift supervisor RN are both aware that patient's discharge is on hold until tomorrow. Will endorse care to the production shift supervisor RN.
[2018-09-27 20:10] VITALS: BP 139/76
[2018-09-27 21:52] VITALS: BP 139/76
[2018-09-28 05:28] VITALS: BP 146/80
[2018-09-28] MEDS: SODIUM CHLOR 0.9% PF (SALINE LOCK) 10ML VIAL/SYR IV SCH (06:31)
--- NOTE | 2018-09-28 07:40 | NUR ---
Opening Shift Note Assumed care of patient, awake and alert. No S/S of distress/SOB or pain. Dressing to left hip clean/dry/intact. Insructed on POC and to call for assist PRN, will continue to monitor for changes Q1hr and PRN.
[2018-09-28 08:00] VITALS: BP 137/89
[2018-09-28 08:52] LABS: Hematocrit 34.9 % (41.0-53.0); Hemoglobin 12.1 g/dL (13.5-17.5)
[2018-09-28 09:00] VITALS: BP 137/89
[2018-09-28] MEDS: PANTOPRAZOLE 40 MG TAB PO SCH (10:18)
[2018-09-28] MEDS: DOCUSATE SOD 100 MG CAP PO SCH (10:18)
[2018-09-28] MEDS: ENOXAPARIN SOD 40 MG/0.4 ML SYRINGE SC SCH (10:19)
--- NOTE | 2018-09-28 10:30 | NUR ---
PT WALKS WITH PT.
--- NOTE | 2018-09-28 13:07 | NUR ---
Discharge instructions given as ordered. Encourage to follow up with DR SUAREZ AND DR. ERIC as instructed. All questions and concerns addressed. Patient verbalized understanding. Medication reconciliation form completed and copy given to patient. Patient taken to vehicle via wheelchair with all personal belongings, accompanied by staff and family member. No distress noted at time of departure.
== END 2018-09-28 13:11 | disposition home or self-care (01) | DRG 470 ==
LOC: SUR 12:32 → TELE-CENTR 21:00 → CENTRAL 09-25 12:10
PROVIDERS: ADMIT Orthopaedic Surgery; ATTEND Internal Medicine
PROC: 0MBM0ZZ Excision of Left Hip Bursa and Ligament, Open Approach (ICD-10-PCS; 2018-09-24)
PROC: 0SRB01A Replacement of Left Hip Joint with Metal Synthetic Substitute, Uncemented, Open Approach (ICD-10-PCS; principal; 2018-09-24 17:15)
DX: M16.12 Unilateral primary osteoarthritis, left hip (principal); M70.62 Trochanteric bursitis, left hip; E66.9 Obesity, unspecified; E78.5 Hyperlipidemia, unspecified; Z79.01 Long term (current) use of anticoagulants; R51 Headache; Z68.27 Body mass index [BMI] 27.0-27.9, adult; I25.10 Atherosclerotic heart disease of native coronary artery without angina pectoris; Z87.891 Personal history of nicotine dependence; Z85.46 Personal history of malignant neoplasm of prostate
CPT/HCPCS: 36415; 73501; 80053; 81003; 83036; 85014; 85018; 85025; 85610; 85730; 86850; 86900; 86901; A6257; G0378; J1100; J1885; J2250; J2704; J3490

== ENCOUNTER → 2018-10-10 | Outpatient (CLI) | payer OTHER | END | disposition home or self-care (01) | LOC: LAB 08:33 | PROVIDERS: ATTEND Radiology Radiation Oncology | DX: C61 Malignant neoplasm of prostate (principal) | CPT/HCPCS: 84153 ==

== ENCOUNTER → 2018-10-11 | Outpatient (CLI) | payer OTHER | END | disposition home or self-care (01) | LOC: LAB 14:47 | PROVIDERS: ATTEND Orthopaedic Surgery | DX: L02.416 Cutaneous abscess of left lower limb (principal) | CPT/HCPCS: 87070; 87075; 87205 ==

== ENCOUNTER 2018-10-14 07:45 | Inpatient (IN) | payer OTHER ==
[~2018-10-14] VITALS: Ht 188 cm; Wt 101.2 kg
[2018-10-14] MEDS ORDERED: SODIUM CHLORIDE 0.9% 1,000 ML IV ONE (09:29)
[2018-10-14] MEDS ORDERED: VANCOMYCIN 1GM/250ML 250 ML IV ONE (10:00)
[2018-10-14] MEDS ORDERED: IOHEXOL 300 MG/ML 100ML BOTTLE IJ ONE (10:29)
[2018-10-14 10:31] LABS: Basophils # (auto) 0.1 uL; Basophils % (auto) 0.9 % (0.0-2.0); Eosinophils # (auto) 0.3 uL; Eosinophils % (auto) 3.9 % (0.0-7.0); Hematocrit 40.1 % (41.0-53.0); Hemoglobin 13.4 g/dL (13.5-17.5); Lymphocytes # (auto) 1.5 uL; Lymphocytes % (auto) 16.9 % (10.0-50.0); Mean Corpuscular Hemoglobin 31.7 pg (28.0-32.0); Mean Corpuscular Hgb Conc. 33.3 g/dL (32.0-36.0); Mean Corpuscular Volume 95.3 fL (80.0-100.0); Monocytes # (auto) 0.8 uL; Monocytes % (auto) 8.7 % (0.0-12.0); Neutrophils # (auto) 6.2 uL; Neutrophils % (auto) 69.6 % (37.0-80.0); Nucleated Red Blood Cells % 0.2 %; Platelet Count (auto) 362 10^3/uL (140-450); Red Blood Cells 4.21 10^6/uL (4.5-5.90); Red Cell Distribution Width 14.6 % (11.8-14.3); White Blood Cell 8.9 10^3/uL (4.4-10.8)
[2018-10-14 10:56] LABS: Albumin 3.5 g/dL (3.4-5.0); BUN/Creatinine Ratio 23.1; Potassium 4.3 mmol/L (3.5-5.1)
[2018-10-14 11:15] LABS: INR 0.93 (0.9-1.15); Partial Thromboplastin Time 28.4 sec (23.78-33.04)
[2018-10-14 11:16] LABS: Bilirubin, Total 0.6 mg/dL (0.2-1.0); Total Protein 7.9 g/dL (6.4-8.2)
[2018-10-14] MEDS ORDERED: ONDANSETRON HCL 4 MG/2 ML VIAL IV PRN (13:45)
[2018-10-14] MEDS ORDERED: MORPHINE SULFATE 4 MG/ML SYR/VIAL IV PRN (13:45)
[2018-10-14] MEDS ORDERED: NITROGLYCERIN 0.4 MG SL TAB SL PRN (13:45)
[2018-10-14] MEDS ORDERED: VANCOMYCIN PER PHARMACY 0 MG IV SCH (13:45)
[2018-10-14] MEDS ORDERED: ACETAMINOPHEN 500 MG TAB PO PRN (13:45)
[2018-10-14 16:19] LABS: Urine Bacteria NONE SEEN /hpf (None Seen); Urine Blood Negative /uL (Negative); Urine Mucus FEW (None Seen); Urine WBC 1 /hpf (0 - 3)
[2018-10-14] MEDS: LEVOFLOXACIN 750MG 150 ML IV SCH (16:40)
[2018-10-14 17:57] LABS: Urine Specific Gravity > 1.050 (1.001-1.035)
[2018-10-14] MEDS: RIVAROXABAN 10 MG TAB PO SCH (18:49)
--- NOTE | 2018-10-14 20:05 | NUR ---
MS admit from ER [facility] VO admitted to tele/MS after SBAR received. Patient oriented to VADIM PILLAI RN primary RN, unit, room, bed, and unit policies regarding patient care and visiting hours. Patient weighed by bedscale and encouraged to call if they need something. All questions and concerns addressed, patient verbalized understanding.
[2018-10-14 20:26] VITALS: BP 150/73
[2018-10-14 22:00] VITALS: BP 150/73
[2018-10-14] MEDS ORDERED: DOCUSATE SOD 100 MG CAP PO PRN (22:00)
--- NOTE | 2018-10-15 00:18 | NUR ---
MRSA nares sent to lab via bullet system.
[2018-10-15] MEDS: VANCOMYCIN 1GM/250ML 250 ML IV SCH ×2 (01:53→15:28)
[2018-10-15 05:00] VITALS: BP 149/88
--- NOTE | 2018-10-15 07:45 | NUR ---
Assumed care of pt, awake and alert, no s&s of distress/sob or pain noted, instructed on poc and to call for assist prn, will continue to monitor for changes q1h and prn.
[2018-10-15] MEDS: LEVOFLOXACIN 750MG 150 ML IV SCH (08:40)
[2018-10-15 09:00] VITALS: BP 135/65
--- NOTE | 2018-10-15 10:45 | NUR ---
WOUND CARE NOTE: Wound care in to see patient per wound care request regarding "Lt hip surgical wound" that are noted present on admission. Patient is 78 years old male with admitting diagnosis of Infected Surgical Wound. Patient has history of CA, high lipids. Patient is resting in bed in Rm. 249A. He's awake, alert and fully oriented. Patient denies any pain at this time. He's ambulatory and his current Jerson score is 20. Patient underwent total L hip arthroplasty on 09/24/18. He came in due to reports of discharge coming from surgical incision site, seen by orthopedic surgeon and [facility]. His L hip has 12 cm well approximated incision with 2cm at distal aspect of L hip incision with three intact ale. Area is red and indurated, no drainage/odor noted. Patient denies pain on palpation. Photograph of patient's wound are taken for reference. Cleansed L hip wound with NS, patted dry with sterile gauze and covered with dry sterile dressing (Layers of sterile 4x4's gauze) and secured with Medipore tape. Patient tolerated well and denies any other wound. No further wound care monitoring needed at this time. RECOMMENDATION: Dressing change to L hip wound per MD order, redistribute pressure points with pillows, elevate heels on pillows. Addendum: 10/15/18 at 1524 by Sunitha Vizcaino RN Amended: Links added.
[2018-10-15 11:21] LABS: Basophils # (auto) 0 uL; Basophils % (auto) 0.7 % (0.0-2.0); Eosinophils # (auto) 0.3 uL; Eosinophils % (auto) 3.8 % (0.0-7.0); Hematocrit 38.3 % (41.0-53.0); Hemoglobin 12.8 g/dL (13.5-17.5); Lymphocytes # (auto) 0.8 uL; Lymphocytes % (auto) 12.4 % (10.0-50.0); Mean Corpuscular Hemoglobin 31.5 pg (28.0-32.0); Mean Corpuscular Hgb Conc. 33.4 g/dL (32.0-36.0); Mean Corpuscular Volume 94.1 fL (80.0-100.0); Monocytes # (auto) 0.5 uL; Monocytes % (auto) 8.3 % (0.0-12.0); Neutrophils # (auto) 4.9 uL; Neutrophils % (auto) 74.8 % (37.0-80.0); Nucleated Red Blood Cells % 0.1 %; Platelet Count (auto) 294 10^3/uL (140-450); Red Blood Cells 4.07 10^6/uL (4.5-5.90); Red Cell Distribution Width 14.5 % (11.8-14.3); White Blood Cell 6.6 10^3/uL (4.4-10.8)
[2018-10-15 11:43] LABS: Albumin 3.3 g/dL (3.4-5.0); CRP High Sensitivity 0.2 mg/dL (< 0.3); Magnesium 2.5 mg/dL (1.6-2.6); Potassium 3.8 mmol/L (3.5-5.1)
[2018-10-15 11:46] LABS: BUN/Creatinine Ratio 18.2; Bilirubin, Total 0.6 mg/dL (0.2-1.0); Total Protein 7.6 g/dL (6.4-8.2)
[2018-10-15] MEDS ORDERED: PIPERACILLIN-TAZOB 3.375GM 100 ML IV SCH (12:00)
--- NOTE | 2018-10-15 12:31 | NUR ---
Pt awake and alert, no s&s of distress/sob or pain noted, will continue to monitor for changes q1h and prn.
[2018-10-15 13:00] VITALS: BP_SYST 145; BP_SYST 158; BP_DIAS 84; BP_DIAS 96
[2018-10-15] MEDS: PIPERACILLIN-TAZOB 3.375GM 100 ML IV SCH ×2 (13:10→18:35)
--- NOTE | 2018-10-15 15:47 | NUR ---
Pt awake and alert, no s&s of distress/sob or pain noted, will continue to monitor for changes q1h and prn.
[2018-10-15 17:25] VITALS: BP 152/74
[2018-10-15] MEDS: RIVAROXABAN 10 MG TAB PO SCH (17:48)
--- NOTE | 2018-10-15 19:30 | NUR ---
OPENING NOTES RECEIVED REPORT FROM DAY SHIFT NURSE. PT IS ALERT AND ORIENTATED X 4 WITH NO S/S OF DISTRESS NOR PAIN. LEFT HIP DRESSING IS CLEAN, DRY AND INTACT. BED IS IN LOWEST POSITION WITH SIDE RAILS UP X 2. BED BRAKES ARE LOCKED AND CALL LIGHT IS WITHIN REACH. HOB IS 30 DEGREES. WILL MONITOR Q 1 HR.
[2018-10-15 22:00] VITALS: BP 129/71
[2018-10-16] MEDS: PIPERACILLIN-TAZOB 3.375GM 100 ML IV SCH ×5 (00:26→23:52)
[2018-10-16] MEDS: VANCOMYCIN 1GM/250ML 250 ML IV SCH ×2 (02:20→14:44)
[2018-10-16 05:40] VITALS: BP 148/88
--- NOTE | 2018-10-16 07:19 | NUR ---
Assumed care of pt, sleeping, easily aroused, no s&s of distress/sob or pain noted, instructed on poc and to call for assist prn, will continue to monitor for changes q1h and prn.
--- NOTE | 2018-10-16 07:49 | NUR ---
CLOSING NOTES ENDORSED CARE TO DAY SHIFT RNDANIELLA.
[2018-10-16] MEDS: FAMOTIDINE 20 MG TAB PO SCH (08:44)
--- NOTE | 2018-10-16 11:52 | NUR ---
Pt awake and alert, no s&s of distress/sob or pain noted, will continue to monitor for changes q1h and prn.
--- NOTE | 2018-10-16 15:15 | NUR ---
Pt found standing by OLVIN in restroom and reported he had fallen, pt sustained a small skin tear to Left FA while he hit the left FA on the metal side rail, skin tear cleans with NS and foam dressing applied, paged Dr. Zaragoza to notify. Addendum: 10/16/18 at 1553 by Juan Gaxiola RN Pt and spouse refuse bed alarm while spouse is there because she says she can help him. Pt is moving all extremities, denies hitting his head or falling on trunk area; he reports only hit his Rt arm.
--- NOTE | 2018-10-16 15:53 | NUR ---
Notified Dr. Zaragoza that pt fell, no orders received.
[2018-10-16] MEDS: RIVAROXABAN 10 MG TAB PO SCH (17:35)
[2018-10-16 20:00] VITALS: BP 126/67
--- NOTE | 2018-10-16 20:00 | NUR ---
Opening Shift Note Assumed care of patient, awake and alert. No S/S of distress/SOB or pain. Instructed on POC and to call for assistance PRN, will continue to monitor for changes Q1hr and PRN. Bed alarm on, red socks on, call light within reach
[2018-10-16 22:28] VITALS: BP 126/67
[2018-10-17] MEDS: VANCOMYCIN 1GM/250ML 250 ML IV SCH ×2 (02:18→14:58)
--- NOTE | 2018-10-17 03:00 | NUR ---
NPO Patient npo for possible procedure per patient, no orders for consent or surgical notes, will prepare for possible surgery
--- NOTE | 2018-10-17 04:30 | NUR ---
CHG bath given
--- NOTE | 2018-10-17 04:44 | NUR ---
Dressing Change Dressing change to left hip completed per order, patient tolerated well
[2018-10-17 05:03] VITALS: BP 98/64
[2018-10-17] MEDS: PIPERACILLIN-TAZOB 3.375GM 100 ML IV SCH (06:33)
--- NOTE | 2018-10-17 06:55 | NUR ---
Patient taken to preop via stretcher, alert x4, no distress Consents to be signed in preop no orders at this time, blank consents printed
--- NOTE | 2018-10-17 08:00 | NUR ---
Opening Shift Note Assumed care of patient, awake and alert. No S/S of distress/SOB or pain. Instructed on POC and to call for assist PRN, will continue to monitor for changes Q1hr and PRN. SURGERY WAS CANCELLED FOR TODAY DUE TO PATIENT HAVING DIARRHEA. WILL BE DONE TOMORROW MORNING. RADIOLOGY ALSO SAID HE NEEDS TO HAVE AN EKG DONE BEFORE TOMORROW.
[2018-10-17 09:00] VITALS: BP 145/77
[2018-10-17] MEDS: FAMOTIDINE 20 MG TAB PO SCH (10:00)
[2018-10-17 10:38] LABS: BUN/Creatinine Ratio 17.2; Calcium 8.4 mg/dL (8.5-10.1); Potassium 3.5 mmol/L (3.5-5.1)
[2018-10-17 10:43] LABS: Basophils # (auto) 0.1 uL; Basophils % (auto) 1.2 % (0.0-2.0); Eosinophils # (auto) 0.3 uL; Eosinophils % (auto) 5.6 % (0.0-7.0); Hematocrit 37.6 % (41.0-53.0); Hemoglobin 12.8 g/dL (13.5-17.5); Lymphocytes # (auto) 1.1 uL; Lymphocytes % (auto) 17.9 % (10.0-50.0); Mean Corpuscular Hemoglobin 32.3 pg (28.0-32.0); Mean Corpuscular Volume 94.9 fL (80.0-100.0); Monocytes # (auto) 0.5 uL; Monocytes % (auto) 8.4 % (0.0-12.0); Neutrophils % (auto) 66.9 % (37.0-80.0); Platelet Count (auto) 270 10^3/uL (140-450); Red Blood Cells 3.96 10^6/uL (4.5-5.90); Red Cell Distribution Width 14.8 % (11.8-14.3)
[2018-10-17 12:33] VITALS: BP 129/73
[2018-10-17] MEDS: CEFEPIME HYDROCHLORIDE 2 GM in SODIUM CHL 0.9% 50 ML IV SCH (13:05)
--- NOTE | 2018-10-17 15:10 | NUR ---
assessment Patient is a 78 year old male who is alert and oriented. Patients cognitive abilities are intact. Prior to admission patient lived home with his Nerissa and functioned independently. Patient informed me he is able to care for his own ADLs. Per patient he will return home to his prior living arrangements post discharge and Nerissa will transport him home. Patient had hip surgery last month. Patient has a fww and a cane for home use. Patient PCP is Dr Zaragoza. Patient will need home health for PT and wound care on discharge. I informed patient he has a right to speak to a social media content manager regarding all care. I informed patient he has a right to participate in any and all discharge planning. Patient is aware of visiting hours on the hospital floor. I informed patient he has a right to privacy. Patient does not have a POA and advanced directive. I have offered patient information on POA and advanced directives. I informed the patient the advantages and benefits of having an Advanced Directive. Patient verbalized understanding and agreed to discharge plan. Addendum: 10/17/18 at 1512 by Katrin HIGHTOWER Amended: Links added.
[2018-10-17] MEDS: RIVAROXABAN 10 MG TAB PO SCH (16:43)
--- NOTE | 2018-10-17 16:44 | NUR ---
HELD AVA PATIENT GOING FOR HIP PROCEDURE IN AM. HELD AVA SALAZAR.
[2018-10-17 17:16] VITALS: BP 135/66
--- NOTE | 2018-10-17 19:35 | NUR ---
Opening Shift Note Assumed care of patient, awake and alert x4. No S/S of distress/SOB or pain. Instructed on POC awaiting cdiff stool sample instructed to call next time he has a bm for collection, supplies in restroom. Pt states his diarrhea has calmed down and only had 2 bms today, will await next stool. Instructed to call for assistance PRN, will continue to monitor for changes Q1hr and PRN.
[2018-10-17 20:00] VITALS: BP 129/62
[2018-10-17] MEDS: FLORASTOR (S. BOULARDII) 250 MG CAP PO SCH (20:48)
[2018-10-17] MEDS: metroNIDAZOLE 500MG/100ML 100 ML IV SCH (20:49)
[2018-10-17 21:30] VITALS: BP 129/62
--- NOTE | 2018-10-17 23:30 | NUR ---
Dressing Change Dressing change for healing skin tear. Area cleansed with wound cleanser patted dry with sterile gauze and applied therahoney, covered with optifoam. Patient tolerated well
--- NOTE | 2018-10-17 23:32 | NUR ---
IV insertion IV access obtained, via clean sterile technique by inserting 22 gauge catheter at right forearm after attempt(s). IV secured properly. No trauma to site. Patient tolerated well. NOTE: Addendum: 10/18/18 at 0322 by Kate Stern RN RN Patient accidentally dislodged prior IV. Patient cleaned up and gown changed
[2018-10-18] MEDS: CEFEPIME HYDROCHLORIDE 2 GM in SODIUM CHL 0.9% 50 ML IV SCH ×2 (00:21→14:11)
[2018-10-18 01:05] VITALS: BP 129/62
--- NOTE | 2018-10-18 02:00 | NUR ---
Vanco Vanco not able to be administered on time due to antibiotic Maxipime infusing at this time, will administer upon completion of infusion
[2018-10-18] MEDS: VANCOMYCIN 1GM/250ML 250 ML IV SCH ×2 (04:14→15:50)
[2018-10-18 05:00] VITALS: BP 145/81
[2018-10-18] MEDS: metroNIDAZOLE 500MG/100ML 100 ML IV SCH ×3 (05:21→21:29)
--- NOTE | 2018-10-18 06:12 | NUR ---
C diff stool sample bulleted to lab Patient has had first bm since shift, dark brown semi liquid brown stool, bulleted to lab
--- NOTE | 2018-10-18 07:25 | NUR ---
Pharmacy Pharmacy called regarding change of time for vanco to 1600 due to delay due to antibiotic Maxipime running. Pharmacy to adjust time
--- NOTE | 2018-10-18 08:00 | NUR ---
Opening Shift Note Assumed care of patient, awake and alert. No S/S of distress/SOB or pain. Instructed on POC and to call for assist PRN, will continue to monitor for changes Q1hr and PRN.
[2018-10-18 09:17] VITALS: BP 151/77
[2018-10-18] MEDS: FAMOTIDINE 20 MG TAB PO SCH (09:39)
[2018-10-18] MEDS: FLORASTOR (S. BOULARDII) 250 MG CAP PO SCH (09:39)
[2018-10-18 12:32] VITALS: BP 125/68
--- NOTE | 2018-10-18 14:14 | NUR ---
NUTRITION ASSESSMENT NOTES Please refer to link notes of nutrition screen form filed under the intervention section of the plan of care for further details. Est. Needs: 2000 kcal to 2550 kcal (20-25 kcal/kgBW), 81 gms to 101 gms pro (0.8-1.0 gms/kgBW). Will continue to monitor pertinent labs and reassess nutrient need prn Thank you. Addendum: 10/18/18 at [address] Amended: Links added.
--- NOTE | 2018-10-18 15:05 | NUR ---
PROCEDURE PATIENT TAKEN FROM FLOOR BY KAN FOR PROCEDURE: LLE U/S GUIDED ASPIRATION OF LEFT HIP.
[2018-10-18] MEDS: RIVAROXABAN 10 MG TAB PO SCH (15:58)
[2018-10-18 16:20] VITALS: BP 147/71
[2018-10-18] MEDS: TEMAZEPAM 15 MG CAP PO PRN (21:28)
[2018-10-18 21:30] VITALS: BP 141/83
[2018-10-19] MEDS: CEFEPIME HYDROCHLORIDE 2 GM in SODIUM CHL 0.9% 50 ML IV SCH ×3 (00:20→23:39)
[2018-10-19 04:30] VITALS: BP 166/75
[2018-10-19] MEDS: VANCOMYCIN 1GM/250ML 250 ML IV SCH ×2 (04:39→17:17)
[2018-10-19] MEDS: metroNIDAZOLE 500MG/100ML 100 ML IV SCH ×3 (05:39→20:56)
[2018-10-19 07:23] LABS: Basophils # (auto) 0.1 uL; Basophils % (auto) 1.3 % (0.0-2.0); Eosinophils # (auto) 0.4 uL; Eosinophils % (auto) 8.3 % (0.0-7.0); Hematocrit 38.3 % (41.0-53.0); Hemoglobin 12.8 g/dL (13.5-17.5); Lymphocytes % (auto) 18.5 % (10.0-50.0); Mean Corpuscular Hemoglobin 31.6 pg (28.0-32.0); Mean Corpuscular Hgb Conc. 33.3 g/dL (32.0-36.0); Monocytes # (auto) 0.6 uL; Monocytes % (auto) 11.6 % (0.0-12.0); Neutrophils # (auto) 3.2 uL; Neutrophils % (auto) 60.3 % (37.0-80.0); Nucleated Red Blood Cells % 0.1 %; Platelet Count (auto) 219 10^3/uL (140-450); Red Blood Cells 4.04 10^6/uL (4.5-5.90); White Blood Cell 5.3 10^3/uL (4.4-10.8)
[2018-10-19 07:38] LABS: Albumin 3.2 g/dL (3.4-5.0); BUN/Creatinine Ratio 23.2; Calcium 8.3 mg/dL (8.5-10.1); Magnesium 2.6 mg/dL (1.6-2.6); Potassium 3.8 mmol/L (3.5-5.1)
[2018-10-19 07:41] LABS: Bilirubin, Total 0.5 mg/dL (0.2-1.0); Total Protein 6.9 g/dL (6.4-8.2)
--- NOTE | 2018-10-19 08:05 | NUR ---
Opening Shift Note Assumed care of patient, awake and alert and oriented x4. No S/S of distress/SOB or pain. Instructed on POC and patient to be NPO for procedure this afternoon. Patient instructed to call for assist PRN, will continue to monitor for changes.
[2018-10-19 09:04] VITALS: BP 137/77
[2018-10-19] MEDS: FLORASTOR (S. BOULARDII) 250 MG CAP PO SCH (10:00)
[2018-10-19] MEDS: FAMOTIDINE 20 MG TAB PO SCH (10:00)
--- NOTE | 2018-10-19 11:35 | NUR ---
WOUND CARE Wound care provided to right arm S/T as ordered. Patient tolerated procedure well and will continue to monitor.
[2018-10-19] MEDS ORDERED: fentaNYL CITRATE 100 MCG/2 ML VL ONE (11:41)
[2018-10-19] MEDS ORDERED: HYDROmorphone HCL 2 MG/ML VL ONE (11:41)
[2018-10-19] MEDS ORDERED: fentaNYL CITRATE 10 ML ONE (11:42)
[2018-10-19] MEDS ORDERED: ROCURONIUM 10MG/ML 10ML VIAL IV ONE (11:42)
[2018-10-19] MEDS ORDERED: PROPOFOL 10 MG/ML 20 ML IV ONE ×2 (11:42→14:35)
[2018-10-19] MEDS ORDERED: MIDAZOLAM HCL 1MG/1ML-2 ML VIAL ONE (11:42)
[2018-10-19] MEDS ORDERED: SODIUM CHLORIDE LOCK 10 ML ONE (11:42)
[2018-10-19] MEDS ORDERED: SUCCINYLCHOLINE CHLORIDE 20 MG/ML 10ML VIAL IV ONE ×2 (12:05→12:15)
--- NOTE | 2018-10-19 12:05 | NUR ---
Patient taken to [facility] for procedure, patient care handed off to Nick JUAREZ.
[2018-10-19] MEDS ORDERED: ETOMIDATE (2MG/ML) 20ML VIAL IV ONE (12:15)
[2018-10-19 12:30] VITALS: BP 118/69
[2018-10-19] MEDS ORDERED: METOCLOPRAMIDE HCL 5MG/ml INJ 2ml VIAL IV ONE (12:30)
[2018-10-19] MEDS ORDERED: HYDROmorphone HCL 2 MG/ML VL IV PRN (12:30)
[2018-10-19] MEDS ORDERED: CLINDAMYCIN 600MG IV 50 ML IV ONE (12:41)
[2018-10-19] MEDS ORDERED: CIPROFLOXACIN 400MG/200ML 200 ML IV ONE (12:45)
--- NOTE | 2018-10-19 15:02 | NUR ---
Patient back from OR A&O x4 yet with periods of confusion when awakes due to anesthesia. VS 142/78, 104, 98% on 2 L/min O2, 16, 97.6 T, no c/o pain. Finch cath in place and draining yellow urine. Dressing to left hip C/D/I. Call light within reach, bed in lowest position, and bed alarm on. Patient made aware to call for assistance. Will continue to monitor. Addendum: 10/19/18 at 1943 by Shyann Guevara RN RN Incorrect time patient back on floor at 1702, not 1502
--- NOTE | 2018-10-19 16:40 | NUR ---
Received report from Brie SOLE SEAMER who stated that she will D/C the Cipro order since it wasn't given. F/C placed in OR and pt had 350 ml output, estimated blood loss of 250 mL. Will await for patient's arrival.
[2018-10-19] MEDS: RIVAROXABAN 10 MG TAB PO SCH (18:00)
--- NOTE | 2018-10-19 19:14 | NUR ---
Patient care and report handed off to Lola JUAREZ. Made aware to keep an eye on patient because patient needs to be reoriented to not get up due to high risk precautions.
--- NOTE | 2018-10-19 20:04 | NUR ---
Opening Shift Note Assumed care of patient, awakened and alert. No S/S of distress/SOB or pain. Instructed on POC and to call for assist PRN, will continue to monitor for changes Q1hr and PRN.
[2018-10-19 22:00] VITALS: BP 123/69
[2018-10-20] MEDS: VANCOMYCIN 1GM/250ML 250 ML IV SCH ×2 (03:30→16:29)
[2018-10-20] MEDS: metroNIDAZOLE 500MG/100ML 100 ML IV SCH ×3 (04:35→21:43)
[2018-10-20 05:00] VITALS: BP 92/52
[2018-10-20] MEDS: traMADol HCL 50 MG TAB PO PRN ×3 (05:11→22:50)
--- NOTE | 2018-10-20 07:17 | NUR ---
Report given to Vijay Short to assume care, tell charge nurse patient needs sitter, keep on going up couple of times.
--- NOTE | 2018-10-20 07:25 | NUR ---
Opening Shift Note Assumed care of patient, awake and alert. No S/S of distress/SOB or pain. Instructed on POC-continue IV antibiotics, work with physical therapy and dressing change on the left hip. Patient informed and to call for assist PRN, will continue to monitor for changes Q1hr and PRN.
[2018-10-20 08:00] VITALS: BP 118/64
[2018-10-20] MEDS: MORPHINE SULF INJ 2 MG/ML SYRINGE 1ML IV PRN ×2 (09:34→18:40)
[2018-10-20] MEDS: FLORASTOR (S. BOULARDII) 250 MG CAP PO SCH (09:34)
[2018-10-20] MEDS: FAMOTIDINE 20 MG TAB PO SCH (09:34)
[2018-10-20] MEDS: CEFEPIME HYDROCHLORIDE 2 GM in SODIUM CHL 0.9% 50 ML IV SCH ×2 (11:49→23:56)
[2018-10-20 12:00] VITALS: BP 113/58
--- NOTE | 2018-10-20 14:48 | NUR ---
Nutrition Follow-up Notes Wt.: 99.6 kg Pt was sleeping with no family by bedside. per records pt had sx of his surgical wound infection yesterday. pt with no distress noted per nursing. pt is currently on regular diet with adequate PO of 75% x 4 per RN doc Est. Needs: 2000 kcal to 2550 kcal (20-25 kcal/kgBW), 81 gms to 101 gms pro (0.8-1.0 gms/kgBW). Will continue to monitor pertinent labs and reassess nutrient need prn Labs: BUN 22 H, CA 8.3 L, ALB 3.2 L. Skin: Jerson scale 15, mod risk, incision on hip per RN doc GI: Pt had 4 BM on 10/18 per index clerk. PES: Altered nutrition related lab values r/t current/chronic medical condition aeb hyperglycemia, hyperchloremia, elev.BUN, hypocalcemia and mild hypoalbuminemia Will continue to monitor PO intake, skin status, pertinent labs and weight trend. F/u in 3-5 days. Rec.: 1.) If Albumin level continues trending down, consider Prostat 1 pkt BID. 2.) Consider daily MVI with minerals and Asc acid 500 mgs BID. 3.) Continue close supervision and feeding assistance prn during meals 4.) Refer to RD for further nutrition education and weight monitoring upon discharged. 5.) Continue current plan of care.
[2018-10-20 17:00] VITALS: BP 110/57
[2018-10-20] MEDS: RIVAROXABAN 10 MG TAB PO SCH (18:40)
--- NOTE | 2018-10-20 19:00 | NUR ---
Closing Note Patient is resting in bed, pain medication given as ordered. Patient is trying to have his dinner at this time. Call light within reach and bed in lowest position. Care endorsed to night RN.
--- NOTE | 2018-10-20 19:45 | NUR ---
Opening Shift Note Assumed care of patient, awake and alert. No S/S of distress/SOB or pain. Instructed on POC and to call for assist PRN, will continue to monitor for changes Q1hr and PRN.Dressing done in the left hip with povidine swab,dry with gauze covered with mepore dressing, incision site is clean and dry no drainage noted , no signs of infection.
[2018-10-20 21:29] VITALS: BP 119/68
[2018-10-20] MEDS: TEMAZEPAM 15 MG CAP PO PRN (22:50)
[2018-10-21] MEDS: VANCOMYCIN 1GM/250ML 250 ML IV SCH ×2 (03:39→16:04)
[2018-10-21] MEDS: metroNIDAZOLE 500MG/100ML 100 ML IV SCH ×3 (04:28→21:26)
[2018-10-21] MEDS: traMADol HCL 50 MG TAB PO PRN (04:28)
[2018-10-21 05:29] VITALS: BP 117/63
[2018-10-21 07:00] LABS: Hematocrit 30.7 % (41.0-53.0); Hemoglobin 10.2 g/dL (13.5-17.5)
--- NOTE | 2018-10-21 07:18 | NUR ---
Report given to Vijay Washburn to assume care, patient is not in distress, bed alarm on.
[2018-10-21 08:00] VITALS: BP 113/64
[2018-10-21 08:41] VITALS: BP 113/64
[2018-10-21] MEDS: FAMOTIDINE 20 MG TAB PO SCH (10:01)
[2018-10-21] MEDS: FLORASTOR (S. BOULARDII) 250 MG CAP PO SCH (10:01)
[2018-10-21] MEDS: CEFEPIME HYDROCHLORIDE 2 GM in SODIUM CHL 0.9% 50 ML IV SCH ×2 (12:40→23:59)
[2018-10-21 13:00] VITALS: BP 122/64
[2018-10-21] MEDS ORDERED: DIPHENOXYLATE W/ATROPINE 2.5 MG TAB PO PRN (13:15)
--- NOTE | 2018-10-21 13:15 | NUR ---
DR HATFIELD AT BEDSIDE. NEW ORDER LIMOTIL 2.5MG PO Q 12H PRN FOR DIARRHEA. WILL CARRY OUT ORDER.
[2018-10-21 17:00] VITALS: BP 127/70
[2018-10-21] MEDS: RIVAROXABAN 10 MG TAB PO SCH (19:43)
--- NOTE | 2018-10-21 19:44 | NUR ---
CARE ENDORSED TO NATACHA JUAREZ.
--- NOTE | 2018-10-21 19:45 | NUR ---
Opening Shift Note Assumed care of patient, awake and alert. No S/S of distress/SOB or pain. Dressing to left hip dry and intact, ruiz patent and draining. Patient able to help in turning to his side. Instructed on POC and to call for assist PRN, bed alarm on, call light within reach, will continue to monitor for changes Q1hr and PRN.
[2018-10-21 21:00] VITALS: BP 110/60
[2018-10-21] MEDS: TEMAZEPAM 15 MG CAP PO PRN (21:26)
--- NOTE | 2018-10-22 | NUR ---
Patient woke up and became confused, yelled 's name Nerissa. Reoriented to time, place and situation, patient able to follow command, will continue to monitor
[2018-10-22] MEDS: VANCOMYCIN 1GM/250ML 250 ML IV SCH ×2 (03:30→12:51)
[2018-10-22 05:00] VITALS: BP 123/60
[2018-10-22 05:14] LABS: Hematocrit 30.2 % (41.0-53.0); Hemoglobin 10.2 g/dL (13.5-17.5)
--- NOTE | 2018-10-22 05:25 | NUR ---
Changed dressing to left hip, incision intact with ale on, no drainage or bleeding noted, swabbed with povidone and covered with primapore, patient tolerated well
[2018-10-22] MEDS: metroNIDAZOLE 500MG/100ML 100 ML IV SCH ×2 (05:26→11:27)
[2018-10-22 07:55] VITALS: BP 147/65
--- NOTE | 2018-10-22 08:00 | NUR ---
PT RESTING IN BED. PT REPORTS, "BREAKFAST IS TERRIBLE, I WOULDN'T FEED IT TO MY DOG.: PT AGITATED AND REPORTS 8/10 PAIN IN HIP. PT REFUSES PAIN MEDICATION AT THIS TIME. BED ALARM ON PT ENCOURAGED TO USE CALL LIGHT PRN AND FOR BED CESAR, WILL CONTINUE TO MONITOR.
--- NOTE | 2018-10-22 08:00 | NUR ---
220 MLS CLEAR YELLOW ORANGE URINE NOTED IN GELLER. LEFT HIP INCISION WELL APPROXIMATED, NO SWELLING OR ERYTHEMA NOTED. INCISION COVERED WITH PRIMAPORE, CLEAN DRY AND IN TACT.
[2018-10-22] MEDS: FAMOTIDINE 20 MG TAB PO SCH (09:40)
[2018-10-22] MEDS: FLORASTOR (S. BOULARDII) 250 MG CAP PO SCH (09:40)
[2018-10-22] MEDS: CEFEPIME HYDROCHLORIDE 2 GM in SODIUM CHL 0.9% 50 ML IV SCH (12:00)
--- NOTE | 2018-10-22 12:45 | NUR ---
DR SUAREZ SAW PATIENT AND DISCUSSED POC. QUENTIN MAGALLANES PRESENT. NEW ORDERS TO DC GELLER AND ANTIBIOTICS. SS CONSULT FOR HOME BEDSIDE COMMODE. DR. SUAREZ REQUESTS PHYSICAL THERAPY COME WORK WITH PATIENT, CALLED PBX AND PAGED PHYSICAL THERAPY TO ROOM, WILL CONTINUE TO MONITOR.
[2018-10-22 13:00] VITALS: BP 139/79
--- NOTE | 2018-10-22 13:43 | NUR ---
DC'D GELLER CATHETER. 7 MLS NS TAKEN FROM BALLOON . PT TOLERATED PROCEDURE WELL, PHYSICAL THERAPY HELPED PT TO CHAIR. 550 MLS SLIGHTLY CLOUDY ORANGE YELLOW URINE NOTED IN GELLER BAG, PT NOTIFIED TO HIT CALL LIGHT SOON HE VOIDS IN URINAL. WILL CONTINUE TO MONITOR.
--- NOTE | 2018-10-22 14:32 | NUR ---
PT HAD A BM . MODERATE AMOUNT OF BROWN SEMI FORMED STOOL NOTED IN BED CESAR WITH SMALL AMOUNT OF CLEAR YELLOW LIQUID (VOID).
--- NOTE | 2018-10-22 16:31 | NUR ---
SS ORDER FAXED TO PH # ([phone]) AND FAXED TO [facility]
[2018-10-22 17:00] VITALS: BP 141/69
--- NOTE | 2018-10-22 17:05 | NUR ---
PHYSICAL THERAPY REPORTS PT IS ABLE TO AMBULATE IN HALLWAY.
[2018-10-22] MEDS ORDERED: DIPHENOXYLATE W/ATROPINE 2.5 MG TAB PO PRN (17:15)
[2018-10-22] MEDS: RIVAROXABAN 10 MG TAB PO SCH (17:40)
--- NOTE | 2018-10-22 18:52 | NUR ---
pt reports he voided 2 times after ruiz was dc'd.
--- NOTE | 2018-10-22 19:40 | NUR ---
Opening Shift Note Assumed care of patient, awake and alert. No S/S of distress/SOB or pain. Dressing to left hip dry and intact. Updated on POC and to call for assist PRN, patient verbalized understanding, call light within reach, bed alarm on, will continue to monitor for changes Q1hr and PRN.
[2018-10-22] MEDS: TEMAZEPAM 15 MG CAP PO PRN (21:22)
[2018-10-22 22:00] VITALS: BP 117/55
[2018-10-23 05:00] VITALS: BP 131/73
[2018-10-23 08:05] LABS: Basophils # (auto) 0.1 uL; Basophils % (auto) 1.1 % (0.0-2.0); Eosinophils # (auto) 0.3 uL; Eosinophils % (auto) 5.3 % (0.0-7.0); Hematocrit 30.5 % (41.0-53.0); Hemoglobin 10.3 g/dL (13.5-17.5); Lymphocytes # (auto) 1.1 uL; Lymphocytes % (auto) 17.2 % (10.0-50.0); Mean Corpuscular Hemoglobin 31.8 pg (28.0-32.0); Mean Corpuscular Hgb Conc. 33.9 g/dL (32.0-36.0); Mean Corpuscular Volume 93.7 fL (80.0-100.0); Monocytes # (auto) 0.7 uL; Monocytes % (auto) 10.8 % (0.0-12.0); Neutrophils # (auto) 4.2 uL; Neutrophils % (auto) 65.6 % (37.0-80.0); Platelet Count (auto) 205 10^3/uL (140-450); Red Blood Cells 3.26 10^6/uL (4.5-5.90); White Blood Cell 6.3 10^3/uL (4.4-10.8)
[2018-10-23 09:03] VITALS: BP 137/72
[2018-10-23] MEDS: FAMOTIDINE 20 MG TAB PO SCH (09:05)
[2018-10-23] MEDS: FLORASTOR (S. BOULARDII) 250 MG CAP PO SCH (09:05)
--- NOTE | 2018-10-23 10:25 | NUR ---
CHANGED PT LEFT HIP DRESSING. MINIMAL SANGUINOUS DRAINAGE NOTED ON DRESSING. NO ERYTHEMA OR SWELLING NOTED ON INCISION AREA. LANETTE IN TACT AND NEW PRIMAPORE APPLIED.
--- NOTE | 2018-10-23 11:30 | NUR ---
DR SUAREZ SAW PATIENT, PT IS TO BE DISCHARGED TODAY. CALLED PHYSICAL THERAPY TO COME WORK WITH PATIENT. PT PRESCRIPTION FOR XARELTO CALLED INTO [facility], WILL CONTINUE TO MONITOR.
--- NOTE | 2018-10-23 12:01 | NUR ---
CALLED [facility] TO FOLLOW UP WITH HOME [facility] FOR PATIENT, NO ANSWER, LEFT MESSAGE.
--- NOTE | 2018-10-23 12:22 | NUR ---
PT REPORTS PHARMACY WANTS [address] SUAREZ NOTIFIED. NEW ORDERS TO CALL PRESCRIPTION INTO PHARMACY. NOTIFIED PATIENT. PT REQUESTS TO WAIT TO CALL IN SCRIPT, HE'S NOT SURE IF HE ALREADY HAS XARELTO AT HOME, HE'S WAITING FOR HIS TO GET HERE TO CHECK WITH HER.
[2018-10-23 13:00] VITALS: BP 138/78
--- NOTE | 2018-10-23 13:00 | NUR ---
CALLED [facility] TO CALL IN XARELTO PRESCRIPTION, PHARMACIST ON LUNCH, WAS TOLD TO CALL BACK IN 40 MINUTES.
--- NOTE | 2018-10-23 13:35 | NUR ---
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
--- NOTE | 2018-10-23 14:33 | NUR ---
SPOKE WITH [facility] WHO SPOKE WITH QUENTIN, [facility] REPORTS HOME HEALTH HAS BEEN SET UP FOR PATIENT. Addendum: 10/23/18 at 1434 by EDUARD BAEZ RN PT IS CLEAR TO GO HOME FROM [facility].
[2018-10-23 15:53] VITALS: BP 138/78
--- NOTE | 2018-10-23 16:51 | NUR ---
QUENTIN CAME AND SAW PT AND . PT IS SET UP WITH [facility].
== END 2018-10-23 17:00 | disposition home health service (06) | DRG 983 ==
LOC: ER 07:45 → OVERFLOW 13:41 → EAST 20:07
PROVIDERS: ADMIT Nurse Practitioner Acute Care; ATTEND Internal Medicine
PROC: 0S9B3ZZ Drainage of Left Hip Joint, Percutaneous Approach (ICD-10-PCS; 2018-10-18)
PROC: 0SUE09Z Supplement Left Hip Joint, Acetabular Surface with Liner, Open Approach (ICD-10-PCS; 2018-10-19)
PROC: 0SRS0JZ Replacement of Left Hip Joint, Femoral Surface with Synthetic Substitute, Open Approach (ICD-10-PCS; 2018-10-19)
PROC: 0SPS0JZ Removal of Synthetic Substitute from Left Hip Joint, Femoral Surface, Open Approach (ICD-10-PCS; 2018-10-19)
PROC: 0SPB09Z Removal of Liner from Left Hip Joint, Open Approach (ICD-10-PCS; principal; 2018-10-19 12:31)
DX: L03.116 Cellulitis of left lower limb (principal); E78.00 Pure hypercholesterolemia, unspecified; E78.5 Hyperlipidemia, unspecified; M19.90 Unspecified osteoarthritis, unspecified site; Z96.642 Presence of left artificial hip joint; R19.7 Diarrhea, unspecified; Z88.1 Allergy status to other antibiotic agents; Z88.0 Allergy status to penicillin; Z90.49 Acquired absence of other specified parts of digestive tract
CPT/HCPCS: 36415; 71045; 73501; 73701; 76942; 80048; 80053; 80202; 81001; 83605; 83735; 84484; 85014; 85018; 85025; 85610; 85652; 85730; 86141; 87040; 87045; 87070; 87075; 87081; 87205; 87493; 87899; 93005; 93926; 96365; 96366; 96367; 97110; 97116; 97163; 97530; G0378; J0330; J1956; J2250; J2405; J2543; J2704; J3490

== ENCOUNTER → 2019-02-03 | Outpatient (CLI) | payer OTHER, MEDICARE ==
[2019-02-03 12:25] LABS: Basophils # (auto) 0.1 uL; Eosinophils # (auto) 0.5 uL; Eosinophils % (auto) 6.2 % (0.0-7.0); Hematocrit 45.6 % (41.0-53.0); Lymphocytes # (auto) 1.5 uL; Lymphocytes % (auto) 20.3 % (10.0-50.0); Mean Corpuscular Hemoglobin 29.9 pg (28.0-32.0); Mean Corpuscular Hgb Conc. 32.8 g/dL (32.0-36.0); Mean Corpuscular Volume 91.2 fL (80.0-100.0); Monocytes # (auto) 0.7 uL; Monocytes % (auto) 8.8 % (0.0-12.0); Neutrophils # (auto) 4.8 uL; Neutrophils % (auto) 63.7 % (37.0-80.0); Platelet Count (auto) 188 10^3/uL (140-450); Red Cell Distribution Width 15.9 % (11.8-14.3); White Blood Cell 7.5 10^3/uL (4.4-10.8)
[2019-02-03 13:02] LABS: BUN/Creatinine Ratio 36.7; Calcium 9.5 mg/dL (8.5-10.1); Potassium 4.2 mmol/L (3.5-5.1)
[2019-02-03 13:15] LABS: Folate (Folic Acid) 18.34 ng/mL (5.38-24)
== END | disposition home or self-care (01) ==
LOC: LAB 11:50
PROVIDERS: ATTEND Surgery
DX: I72.3 Aneurysm of iliac artery (principal)
CPT/HCPCS: 36415; 80048; 82607; 82746; 85025

== ENCOUNTER → 2019-02-05 | Outpatient (CLI) | payer MEDICARE, OTHER ==
[~2019-02-05] MED LIST changes: +IOHEXOL 350 MG/ML 100ML IJ ONE
== END | disposition home or self-care (01) ==
LOC: CT 08:09
PROVIDERS: ATTEND Surgery
DX: I72.3 Aneurysm of iliac artery (principal); I73.9 Peripheral vascular disease, unspecified; I71.4 Abdominal aortic aneurysm, without rupture; N20.0 Calculus of kidney; M71.21 Synovial cyst of popliteal space [Baker], right knee; K62.89 Other specified diseases of anus and rectum; I70.8 Atherosclerosis of other arteries
CPT/HCPCS: 75635; Q9967

== ENCOUNTER 2019-03-27 06:14 | Day surgery (SDC) | payer OTHER ==
[2019-03-25 12:05] LABS: Basophils # (auto) 0.1 uL; Basophils % (auto) 0.9 % (0.0-2.0); Eosinophils # (auto) 0.4 uL; Hematocrit 48.5 % (41.0-53.0); Lymphocytes # (auto) 1.8 uL; Lymphocytes % (auto) 21.2 % (10.0-50.0); Mean Corpuscular Hemoglobin 31.1 pg (28.0-32.0); Mean Corpuscular Hgb Conc. 33.1 g/dL (32.0-36.0); Monocytes # (auto) 0.7 uL; Monocytes % (auto) 8.3 % (0.0-12.0); Neutrophils # (auto) 5.6 uL; Neutrophils % (auto) 64.6 % (37.0-80.0); Nucleated Red Blood Cells % 0.1 %; Platelet Count (auto) 199 10^3/uL (140-450); Red Blood Cells 5.15 10^6/uL (4.5-5.90); Red Cell Distribution Width 16.2 % (11.8-14.3); White Blood Cell 8.7 10^3/uL (4.4-10.8)
[2019-03-25 12:22] LABS: Urine Bacteria NONE SEEN /hpf (None Seen); Urine Blood 1+ /uL (Negative); Urine Mucus FEW (None Seen); Urine Specific Gravity 1.024 (1.001-1.035); Urine WBC 6 /hpf (0 - 3)
[2019-03-25 12:23] LABS: INR < 0.93 (0.9-1.15); Partial Thromboplastin Time 26.5 sec (23.64-32.05)
[2019-03-25 12:53] LABS: Albumin 4.2 g/dL (3.4-5.0); Calcium 9.4 mg/dL (8.5-10.1); Potassium 4.3 mmol/L (3.5-5.1)
[2019-03-25 12:57] LABS: BUN/Creatinine Ratio 25.9; Total Protein 8.7 g/dL (6.4-8.2)
[~2019-03-27] VITALS: Ht 188 cm; Wt 97.1 kg
[~2019-03-27 06:14] MED LIST changes: -IOHEXOL 350 MG/ML 100ML IJ ONE
[2019-03-27] MEDS ORDERED: CIPROFLOXACIN 400MG/200ML 200 ML IV ONE (07:07)
[2019-03-27] MEDS ORDERED: METOCLOPRAMIDE HCL 5MG/ml INJ 2ml VIAL IV PRN (07:15)
[2019-03-27] MEDS ORDERED: fentaNYL CITRATE 100 MCG/2 ML VL IV PRN (07:15)
[2019-03-27] MEDS ORDERED: HYDROmorphone HCL 2 MG/ML VL IV PRN (07:15)
[2019-03-27] MEDS ORDERED: PROPOFOL 10 MG/ML 20 ML IV ONE (07:18)
[2019-03-27] MEDS ORDERED: MIDAZOLAM HCL 1MG/1ML-2 ML VIAL ONE (07:18)
[2019-03-27] MEDS ORDERED: fentaNYL CITRATE 100 MCG/2 ML VL ONE (07:18)
[2019-03-27] MEDS ORDERED: SODIUM CHLORIDE LOCK 10 ML ONE (07:18)
[2019-03-27] MEDS ORDERED: ONDANSETRON HCL 4 MG/2 ML VIAL ONE (07:18)
[2019-03-27 08:48] VITALS: BP 150/75
== END 2019-03-27 09:54 | disposition home or self-care (01) ==
LOC: SUR 06:14
PROVIDERS: ATTEND Urology
DX: N20.0 Calculus of kidney (principal); E66.9 Obesity, unspecified; Z79.899 Other long term (current) drug therapy; Z85.46 Personal history of malignant neoplasm of prostate; Z98.890 Other specified postprocedural states; Z88.1 Allergy status to other antibiotic agents; Z68.27 Body mass index [BMI] 27.0-27.9, adult
CPT/HCPCS: 36415; 50590; 80053; 81001; 85025; 85610; 85730; J0744; J2250; J2405; J2704; J3010

== ENCOUNTER → 2019-04-28 | Outpatient (CLI) | payer OTHER, MEDICARE | END | disposition home or self-care (01) | LOC: LAB 11:36 | PROVIDERS: ATTEND Radiology Radiation Oncology | DX: C61 Malignant neoplasm of prostate (principal) | CPT/HCPCS: 84153 ==

== ENCOUNTER → 2019-05-02 | Outpatient (CLI) | payer OTHER, MEDICARE | END | disposition home or self-care (01) | LOC: LAB 14:32 | PROVIDERS: ATTEND Urology | DX: N20.0 Calculus of kidney (principal) | CPT/HCPCS: 82360 ==

== ENCOUNTER → 2019-09-04 | Outpatient (CLI) | payer OTHER ==
[~2019-09-04] VITALS: Ht 193 cm; Wt 98.4 kg
[~2019-09-04] MED LIST changes: +ADENOSINE 83 MG in GIVE UN-DILUTED 0 ML IV STA
[2019-09-04 09:54] VITALS: BP 139/78
== END | disposition home or self-care (01) ==
LOC: XY 07:25
PROVIDERS: ATTEND Internal Medicine
DX: Z01.810 Encounter for preprocedural cardiovascular examination (principal)
CPT/HCPCS: 78452; 93017; A9500; J0153

== ENCOUNTER 2019-12-11 06:56 | Day surgery (SDC) | payer OTHER ==
[2019-12-08 09:21] LABS: Urine WBC None Seen /hpf (0 - 3)
[2019-12-08 09:28] LABS: Basophils # (auto) 0.1 10 ^3/uL (0-0.2); Basophils % (auto) 0.9 % (0.0-2.0); Eosinophils # (auto) 0.6 10 ^3/uL (0-0.8); Eosinophils % (auto) 5.9 % (0.0-7.0); Hematocrit 50.5 % (41.0-53.0); Hemoglobin 16.8 g/dL (13.5-17.5); Lymphocytes # (auto) 1.6 10 ^3/uL (0.4-5.4); Lymphocytes % (auto) 16.9 % (10.0-50.0); Mean Corpuscular Hemoglobin 31.9 pg (28.0-32.0); Mean Corpuscular Hgb Conc. 33.3 g/dL (32.0-36.0); Mean Corpuscular Volume 95.8 fL (80.0-100.0); Monocytes # (auto) 0.8 10 ^3/uL (0-1.3); Monocytes % (auto) 8.5 % (0.0-12.0); Neutrophils # (auto) 6.4 10 ^3/uL (1.6-8.6); Neutrophils % (auto) 67.8 % (37.0-80.0); Platelet Count (auto) 224 10^3/uL (140-450); Red Blood Cells 5.27 10^6/uL (4.5-5.90); White Blood Cell 9.4 10^3/uL (4.4-10.8)
[2019-12-08 09:33] LABS: Urine Bacteria NONE SEEN /hpf (None Seen); Urine Blood Negative /uL (Negative); Urine Mucus FEW (None Seen); Urine Specific Gravity 1.022 (1.001-1.035)
[2019-12-08 09:45] LABS: Calcium 9.7 mg/dL (8.5-10.1); Potassium 4.1 mmol/L (3.5-5.1)
[2019-12-08 09:47] LABS: BUN/Creatinine Ratio 27.1
[2019-12-08 09:50] LABS: Total Protein 8.4 g/dL (6.4-8.2)
[2019-12-08 10:15] LABS: INR 0.98 (0.9-1.15); Partial Thromboplastin Time 27.7 sec (23.64-32.05)
[~2019-12-11] VITALS: Ht 188 cm; Wt 96.2 kg
[~2019-12-11 06:56] MED LIST changes: -ADENOSINE 83 MG in GIVE UN-DILUTED 0 ML IV STA
[2019-12-11] MEDS ORDERED: CLINDAMYCIN 600MG IV 50 ML IV ONE (07:42)
[2019-12-11] MEDS ORDERED: MIDAZOLAM HCL 1MG/1ML-2 ML VIAL ONE (07:46)
[2019-12-11] MEDS ORDERED: GLYCOPYRROLATE 0.2 MG/ML 1ML VIAL ONE (07:46)
[2019-12-11] MEDS ORDERED: ONDANSETRON HCL 4 MG/2 ML VIAL ONE (07:46)
[2019-12-11] MEDS ORDERED: PROPOFOL 10 MG/ML 20 ML IV ONE (07:46)
[2019-12-11] MEDS ORDERED: LIDOCAINE W/ EPINEPHRINE 2% INJ 20ML VIAL ONE (08:17)
[2019-12-11] MEDS ORDERED: BUPIVACAINE W/ EPINEPH 0.25% INJ 50ML MDV ONE (08:17)
[2019-12-11] MEDS ORDERED: VANCOMYCIN HCL 1000 MG VL ONE (08:19)
[2019-12-11] MEDS ORDERED: MORPHINE SULF(PF) 0.5MG/ML 10ML VIAL ONE (08:26)
[2019-12-11] MEDS ORDERED: fentaNYL CITRATE 100 MCG/2 ML VL ONE (09:05)
[2019-12-11] MEDS ORDERED: ONDANSETRON HCL 4 MG/2 ML VIAL IV PRN (09:45)
[2019-12-11] MEDS ORDERED: HYDROmorphone HCL 2 MG/ML VL IV PRN (09:45)
[2019-12-11 10:41] VITALS: BP 142/77
== END 2019-12-11 10:45 | disposition home or self-care (01) ==
LOC: SUR 06:56
PROVIDERS: ATTEND Anesthesiology Pain Medicine
DX: M48.062 Spinal stenosis, lumbar region with neurogenic claudication (principal); M19.90 Unspecified osteoarthritis, unspecified site; G89.29 Other chronic pain; Z79.2 Long term (current) use of antibiotics; Z88.0 Allergy status to penicillin; Z88.1 Allergy status to other antibiotic agents; Z79.899 Other long term (current) drug therapy; Z98.890 Other specified postprocedural states
CPT/HCPCS: 22869; 22870; 36415; 72100; 80053; 81001; 85025; 85610; 85730; C1821; J2250; J2270; J2405; J2704; J3010; J3370; J3490; 76000; 76001

== ENCOUNTER → 2019-12-22 | Outpatient (CLI) | payer OTHER | END | disposition home or self-care (01) | LOC: LAB 09:59 | PROVIDERS: ATTEND Radiology Radiation Oncology | DX: C61 Malignant neoplasm of prostate (principal) | CPT/HCPCS: 84153 ==

== ENCOUNTER → 2020-02-24 | Outpatient (CLI) | payer OTHER ==
[2020-02-24 08:38] LABS: Basophils # (auto) 0.1 10 ^3/uL (0-0.2); Basophils % (auto) 1.3 % (0.0-2.0); Eosinophils # (auto) 0.5 10 ^3/uL (0-0.8); Eosinophils % (auto) 6.5 % (0.0-7.0); Hematocrit 48.3 % (41.0-53.0); Lymphocytes # (auto) 1.6 10 ^3/uL (0.4-5.4); Lymphocytes % (auto) 20.8 % (10.0-50.0); Mean Corpuscular Hemoglobin 31.6 pg (28.0-32.0); Mean Corpuscular Hgb Conc. 33.2 g/dL (32.0-36.0); Mean Corpuscular Volume 95.4 fL (80.0-100.0); Monocytes # (auto) 0.6 10 ^3/uL (0-1.3); Monocytes % (auto) 8.6 % (0.0-12.0); Neutrophils # (auto) 4.7 10 ^3/uL (1.6-8.6); Neutrophils % (auto) 62.8 % (37.0-80.0); Nucleated Red Blood Cells % 0.1 %; Platelet Count (auto) 189 10^3/uL (140-450); Red Blood Cells 5.06 10^6/uL (4.5-5.90); Red Cell Distribution Width 14.7 % (11.8-14.3); White Blood Cell 7.5 10^3/uL (4.4-10.8)
[2020-02-24 08:44] LABS: Urine Bacteria NONE SEEN /hpf (None Seen); Urine Blood 2+ /uL (Negative); Urine Hyaline Cast FEW /lpf (0 - 2); Urine Mucus FEW (None Seen); Urine Specific Gravity 1.024 (1.001-1.035); Urine WBC 2 /hpf (0 - 3)
[2020-02-24 09:08] LABS: Folate (Folic Acid) 14.47 ng/mL (5.38-24)
[2020-02-24 09:14] LABS: Potassium 4.3 mmol/L (3.5-5.1)
[2020-02-24 09:28] LABS: BUN/Creatinine Ratio 28.5; Bilirubin, Total 0.7 mg/dL (0.2-1.0); Calcium 9.7 mg/dL (8.5-10.1)
[2020-02-25 06:16] LABS: RPR Non Reactive (Non Reactive)
== END | disposition home or self-care (01) ==
LOC: LAB 08:15
PROVIDERS: ATTEND Internal Medicine
DX: I10 Essential (primary) hypertension (principal)
CPT/HCPCS: 36415; 80053; 81001; 82607; 82746; 84443; 85025; 86592

== ENCOUNTER → 2020-06-24 | Day surgery (SDC) | payer OTHER ==
[2020-06-18 13:08] LABS: Basophils # (auto) 0.1 10 ^3/uL (0-0.2); Basophils % (auto) 1.4 % (0.0-2.0); Eosinophils # (auto) 0.3 10 ^3/uL (0-0.8); Eosinophils % (auto) 4.5 % (0.0-7.0); Hematocrit 50.4 % (41.0-53.0); Hemoglobin 16.9 g/dL (13.5-17.5); Lymphocytes # (auto) 1.4 10 ^3/uL (0.4-5.4); Lymphocytes % (auto) 18.9 % (10.0-50.0); Mean Corpuscular Hemoglobin 32.1 pg (28.0-32.0); Mean Corpuscular Hgb Conc. 33.6 g/dL (32.0-36.0); Mean Corpuscular Volume 95.5 fL (80.0-100.0); Monocytes # (auto) 0.6 10 ^3/uL (0-1.3); Monocytes % (auto) 7.5 % (0.0-12.0); Neutrophils % (auto) 67.7 % (37.0-80.0); Platelet Count (auto) 218 10^3/uL (140-450); Red Blood Cells 5.27 10^6/uL (4.5-5.90); Red Cell Distribution Width 15.1 % (11.8-14.3); White Blood Cell 7.4 10^3/uL (4.4-10.8)
[2020-06-18 13:14] LABS: Urine Bacteria NONE SEEN /hpf (None Seen); Urine Blood 1+ /uL (Negative); Urine Hyaline Cast MANY /lpf (0 - 2); Urine Mucus FEW (None Seen); Urine Specific Gravity 1.022 (1.001-1.035); Urine WBC 10 /hpf (0 - 3)
[2020-06-18 13:24] LABS: Partial Thromboplastin Time 26.4 sec (23.0-31.2)
[2020-06-18 14:11] LABS: Albumin 4.2 g/dL (3.4-5.0); Calcium 9.5 mg/dL (8.5-10.1); Potassium 4.1 mmol/L (3.5-5.1)
[2020-06-18 14:15] LABS: BUN/Creatinine Ratio 25.6; Bilirubin, Total 0.8 mg/dL (0.2-1.0); Total Protein 7.9 g/dL (6.4-8.2)
[~2020-06-24] VITALS: Ht 188 cm; Wt 93.9 kg
[~2020-06-24] MED LIST changes: +BUPIVACAINE 0.25% INJ 50ML VIAL ONE; +CLINDAMYCIN 600MG IV 50 ML IV ONE; +DexAMETHasone SOD PHOS 10MG/1ML VIAL INJ ONE; +HYDROmorphone HCL 2 MG/ML VL IV PRN; +KETAMINE HCL 10 ML ONE; +LIDOCAINE 2% (LOCAL ANESTH.) PF 5ml SDV ONE; +LIDOCAINE W/ EPINEPHRINE 1% 20ML VIAL ONE; +MIDAZOLAM HCL 1MG/1ML-2 ML VIAL ONE; +MORPHINE SULF(PF) 0.5MG/ML 10ML VIAL ONE; +MORPHINE SULFATE 4 MG/ML SYR/VIAL IV PRN; +ONDANSETRON HCL 4 MG/2 ML VIAL IV PRN; +ONDANSETRON HCL 4 MG/2 ML VIAL ONE; +PROPOFOL 10 MG/ML 20 ML IV ONE; +SODIUM CHLORIDE LOCK 10 ML ONE; +VANCOMYCIN HCL 1000 MG VL ONE; +fentaNYL CITRATE 100 MCG/2 ML VL ONE
[2020-06-25 06:15] VITALS: BP 149/85
== END | disposition home or self-care (01) ==
LOC: SUR 06:00
PROVIDERS: ATTEND Anesthesiology Pain Medicine
DX: M48.062 Spinal stenosis, lumbar region with neurogenic claudication (principal); G89.29 Other chronic pain; M19.90 Unspecified osteoarthritis, unspecified site; Z88.8 Allergy status to other drugs, medicaments and biological substances; Z85.46 Personal history of malignant neoplasm of prostate; Z88.0 Allergy status to penicillin; Z20.828 Contact with and (suspected) exposure to other viral communicable diseases; Z98.890 Other specified postprocedural states; Z88.1 Allergy status to other antibiotic agents; Z96.643 Presence of artificial hip joint, bilateral
CPT/HCPCS: 22869; 22870; 36415; 72110; 80053; 81001; 85025; 85610; 85730; C1821; J1100; J2001; J2250; J2270; J2405; J2704; J3010; J3370; J3490; U0003; 76001

== ENCOUNTER → 2020-06-30 | Outpatient (CLI) | payer OTHER ==
[~2020-06-30] MED LIST changes: -BUPIVACAINE 0.25% INJ 50ML VIAL ONE; -CLINDAMYCIN 600MG IV 50 ML IV ONE; -DexAMETHasone SOD PHOS 10MG/1ML VIAL INJ ONE; -HYDROmorphone HCL 2 MG/ML VL IV PRN; -KETAMINE HCL 10 ML ONE; -LIDOCAINE 2% (LOCAL ANESTH.) PF 5ml SDV ONE; -LIDOCAINE W/ EPINEPHRINE 1% 20ML VIAL ONE; -MIDAZOLAM HCL 1MG/1ML-2 ML VIAL ONE; -MORPHINE SULF(PF) 0.5MG/ML 10ML VIAL ONE; -MORPHINE SULFATE 4 MG/ML SYR/VIAL IV PRN; -ONDANSETRON HCL 4 MG/2 ML VIAL IV PRN; -ONDANSETRON HCL 4 MG/2 ML VIAL ONE; -PROPOFOL 10 MG/ML 20 ML IV ONE; -SODIUM CHLORIDE LOCK 10 ML ONE; -VANCOMYCIN HCL 1000 MG VL ONE; -fentaNYL CITRATE 100 MCG/2 ML VL ONE
== END | disposition home or self-care (01) ==
LOC: LAB 07:17
PROVIDERS: ATTEND Radiology Radiation Oncology
DX: C61 Malignant neoplasm of prostate (principal)
CPT/HCPCS: 84153; 84154

== ENCOUNTER → 2020-07-28 | Outpatient (CLI) | payer OTHER | END | disposition home or self-care (01) | LOC: LAB 08:15 | PROVIDERS: ATTEND Radiology Radiation Oncology | DX: C61 Malignant neoplasm of prostate (principal) | CPT/HCPCS: 84153; 84154 ==

== ENCOUNTER → 2020-10-19 | Outpatient (CLI) | payer OTHER | END | disposition home or self-care (01) | LOC: LAB 07:22 | PROVIDERS: ATTEND Radiology Radiation Oncology | DX: C61 Malignant neoplasm of prostate (principal) | CPT/HCPCS: 84153; 84154 ==

== ENCOUNTER → 2020-11-11 | Outpatient (CLI) | payer OTHER ==
[2020-11-11 07:39] LABS: Basophils # (auto) 0.1 10 ^3/uL (0-0.2); Basophils % (auto) 1.1 % (0.0-2.0); Eosinophils # (auto) 0.5 10 ^3/uL (0-0.8); Hematocrit 48.7 % (41.0-53.0); Hemoglobin 16.5 g/dL (13.5-17.5); Lymphocytes # (auto) 1.9 10 ^3/uL (0.4-5.4); Lymphocytes % (auto) 24.6 % (10.0-50.0); Mean Corpuscular Hemoglobin 31.8 pg (28.0-32.0); Mean Corpuscular Hgb Conc. 33.8 g/dL (32.0-36.0); Monocytes # (auto) 0.7 10 ^3/uL (0-1.3); Monocytes % (auto) 9.8 % (0.0-12.0); Neutrophils # (auto) 4.4 10 ^3/uL (1.6-8.6); Neutrophils % (auto) 57.5 % (37.0-80.0); Nucleated Red Blood Cells % 0.1 %; Platelet Count (auto) 192 10^3/uL (140-450); Red Blood Cells 5.18 10^6/uL (4.5-5.90); Red Cell Distribution Width 15.1 % (11.8-14.3); White Blood Cell 7.6 10^3/uL (4.4-10.8)
[2020-11-11 07:49] LABS: Urine Bacteria FEW /hpf (None Seen); Urine Blood Negative /uL (Negative); Urine Mucus FEW (None Seen); Urine Specific Gravity 1.023 (1.001-1.035); Urine WBC 2 /hpf (0 - 3)
[2020-11-11 08:03] LABS: Albumin 4.2 g/dL (3.4-5.0); Calcium 9.7 mg/dL (8.5-10.1); Potassium 4.1 mmol/L (3.5-5.1)
[2020-11-11 08:08] LABS: BUN/Creatinine Ratio 28.8; Bilirubin, Total 1.1 mg/dL (0.2-1.0); Total Protein 7.7 g/dL (6.4-8.2)
== END | disposition home or self-care (01) ==
LOC: LAB 07:10
PROVIDERS: ATTEND Nurse Practitioner
DX: I10 Essential (primary) hypertension (principal); E78.5 Hyperlipidemia, unspecified
CPT/HCPCS: 36415; 80053; 80061; 81001; 84443; 85025

== ENCOUNTER → 2020-12-22 | Outpatient (CLI) | payer OTHER, MEDICARE ==
[2020-12-22 12:02] LABS: Urine Blood 1+ /uL (Negative); Urine Specific Gravity 1.025 (1.001-1.035)
[2020-12-22 12:06] LABS: Basophils # (auto) 0.1 10 ^3/uL (0-0.2); Basophils % (auto) 1.1 % (0.0-2.0); Eosinophils # (auto) 0.5 10 ^3/uL (0-0.8); Eosinophils % (auto) 6.4 % (0.0-7.0); Hematocrit 49.7 % (41.0-53.0); Hemoglobin 16.8 g/dL (13.5-17.5); Lymphocytes # (auto) 1.8 10 ^3/uL (0.4-5.4); Lymphocytes % (auto) 24.2 % (10.0-50.0); Mean Corpuscular Hemoglobin 32.1 pg (28.0-32.0); Mean Corpuscular Hgb Conc. 33.8 g/dL (32.0-36.0); Mean Corpuscular Volume 95.1 fL (80.0-100.0); Monocytes # (auto) 0.6 10 ^3/uL (0-1.3); Neutrophils # (auto) 4.4 10 ^3/uL (1.6-8.6); Neutrophils % (auto) 60.3 % (37.0-80.0); Nucleated Red Blood Cells % 0.1 %; Platelet Count (auto) 235 10^3/uL (140-450); Red Blood Cells 5.22 10^6/uL (4.5-5.90); Red Cell Distribution Width 14.7 % (11.8-14.3); White Blood Cell 7.3 10^3/uL (4.4-10.8)
[2020-12-22 12:09] LABS: Potassium 4.2 mmol/L (3.5-5.1)
[2020-12-22 12:13] LABS: Free T4 (Free Thyroxine) 1.12 ng/dL (0.89-1.76)
[2020-12-22 12:23] LABS: Albumin 4.1 g/dL (3.4-5.0); BUN/Creatinine Ratio 25.7; Bilirubin, Total 0.9 mg/dL (0.2-1.0); Calcium 9.2 mg/dL (8.5-10.1)
[2020-12-22 12:45] LABS: Prostate Specific Antigen 5.02 ng/mL (0.0-4.0)
== END | disposition home or self-care (01) ==
LOC: LAB 08:28
PROVIDERS: ATTEND Internal Medicine
DX: C61 Malignant neoplasm of prostate (principal); D64.9 Anemia, unspecified; E11.9 Type 2 diabetes mellitus without complications; E55.9 Vitamin D deficiency, unspecified; I10 Essential (primary) hypertension; R00.2 Palpitations; R53.1 Weakness; R30.0 Dysuria; D51.3 Other dietary vitamin B12 deficiency anemia
CPT/HCPCS: 36415; 80053; 80061; 81003; 82306; 82607; 83036; 84153; 84154; 84403; 84439; 84443; 85025

== ENCOUNTER → 2020-12-28 | Outpatient (CLI) | payer OTHER, MEDICARE | END | disposition home or self-care (01) | LOC: Rad HDHVI 13:55 | PROVIDERS: ATTEND Internal Medicine Cardiovascular Disease | DX: I11.9 Hypertensive heart disease without heart failure (principal); E78.5 Hyperlipidemia, unspecified | CPT/HCPCS: 93306 ==

== ENCOUNTER → 2021-01-06 | Outpatient (CLI) | payer OTHER, MEDICARE ==
[~2021-01-06] VITALS: Ht 185.4 cm; Wt 99.8 kg
[~2021-01-06] MED LIST changes: +ADENOSINE 84 MG in GIVE UN-DILUTED 0 ML IV ONE; +ADENOSINE 90 MG/30 ML INJ IV ONE
== END | disposition home or self-care (01) ==
LOC: Rad HDHVI 12:56
PROVIDERS: ATTEND Internal Medicine
DX: Z01.810 Encounter for preprocedural cardiovascular examination (principal); E78.5 Hyperlipidemia, unspecified
CPT/HCPCS: 78452; 93005; 96374; 96375; A9500; J0153

== ENCOUNTER → 2021-01-18 | Outpatient (CLI) | payer OTHER ==
[~2021-01-18] MED LIST changes: -ADENOSINE 84 MG in GIVE UN-DILUTED 0 ML IV ONE; -ADENOSINE 90 MG/30 ML INJ IV ONE
== END | disposition home or self-care (01) ==
LOC: LAB 08:26
PROVIDERS: ATTEND Radiology Radiation Oncology
DX: C61 Malignant neoplasm of prostate (principal)
CPT/HCPCS: 84153; 84154

== ENCOUNTER 2021-01-24 07:26 | Inpatient (IN) | payer OTHER ==
[2021-01-20 13:36] LABS: Basophils # (auto) 0.1 10 ^3/uL (0-0.2); Eosinophils # (auto) 0.5 10 ^3/uL (0-0.8); Eosinophils % (auto) 5.9 % (0.0-7.0); Hemoglobin 17.1 g/dL (13.5-17.5); Lymphocytes # (auto) 1.7 10 ^3/uL (0.4-5.4); Lymphocytes % (auto) 20.1 % (10.0-50.0); Mean Corpuscular Hemoglobin 32.4 pg (28.0-32.0); Mean Corpuscular Hgb Conc. 34.3 g/dL (32.0-36.0); Mean Corpuscular Volume 94.3 fL (80.0-100.0); Monocytes # (auto) 0.6 10 ^3/uL (0-1.3); Monocytes % (auto) 7.5 % (0.0-12.0); Neutrophils # (auto) 5.5 10 ^3/uL (1.6-8.6); Neutrophils % (auto) 65.5 % (37.0-80.0); Nucleated Red Blood Cells % 0.1 %; Red Cell Distribution Width 14.7 % (11.8-14.3); White Blood Cell 8.5 10^3/uL (4.4-10.8)
[2021-01-20 13:48] LABS: Urine Bacteria NONE SEEN /hpf (None Seen); Urine Blood 1+ /uL (Negative); Urine Mucus FEW (None Seen); Urine Specific Gravity 1.034 (1.001-1.035); Urine WBC 3 /hpf (0 - 3)
[2021-01-20 14:08] LABS: INR 0.99 (0.9-1.15); Partial Thromboplastin Time 27.1 sec (23.0-31.2)
[2021-01-20 14:13] LABS: Albumin 4.1 g/dL (3.4-5.0); Calcium 8.8 mg/dL (8.5-10.1); Potassium 4.3 mmol/L (3.5-5.1)
[2021-01-20 14:15] LABS: BUN/Creatinine Ratio 26.7
[2021-01-20 14:18] LABS: Bilirubin, Total 0.6 mg/dL (0.2-1.0); Total Protein 7.8 g/dL (6.4-8.2)
[~2021-01-24] VITALS: Ht 188 cm; Wt 104.1 kg
[2021-01-24] MEDS ORDERED: ACETAMINOPHEN IV 1000 MG/100ML (10MG/ML) IV ONE (08:45)
[2021-01-24] MEDS ORDERED: CELECOXIB 100 MG CAP PO ONE (08:45)
[2021-01-24] MEDS ORDERED: PREGABALIN CAPSULE 75 MG CAP PO ONE (08:45)
[2021-01-24] MEDS ORDERED: fentaNYL CITRATE 100 MCG/2 ML VL ONE (08:53)
[2021-01-24] MEDS ORDERED: BUPIVACAINE/DEXTROSE MPF 0.75% 2 ML AMP IT ONE (08:53)
[2021-01-24] MEDS ORDERED: ONDANSETRON HCL 4 MG/2 ML VIAL ONE (08:53)
[2021-01-24] MEDS ORDERED: EPINEPHrine HCL 1 MG/1 ML AMP ONE (08:53)
[2021-01-24] MEDS ORDERED: MORPHINE SULF PF 2 MG/2 ML SYRG ONE (08:53)
[2021-01-24] MEDS ORDERED: MIDAZOLAM HCL 2MG/2ML 2ml VIAL (1mg/ml) ONE (08:53)
[2021-01-24] MEDS ORDERED: SODIUM CHLORIDE LOCK 10 ML ONE (08:53)
[2021-01-24] MEDS ORDERED: VANCOMYCIN HCL 1000 MG VL ONE ×2 (09:27→10:00)
[2021-01-24] MEDS ORDERED: TETRACAINE 1% INJ 2 ML VIAL IJ ONE (09:27)
[2021-01-24] MEDS ORDERED: BUPIVACAINE W/ EPINEPH 0.25% INJ 50ML MDV ONE (09:29)
[2021-01-24] MEDS ORDERED: KETOROLAC TROMETH 30 MG/ML 1ML VIAL ONE (09:41)
[2021-01-24] MEDS ORDERED: TRANEXAMIC ACID 20 ML ONE (09:42)
[2021-01-24] MEDS ORDERED: NALOXONE HCL 0.4 MG/ML VIAL IV PRN (11:00)
[2021-01-24] MEDS ORDERED: METOCLOPRAMIDE HCL 5MG/ml INJ 2ml VIAL IV PRN (11:00)
[2021-01-24] MEDS ORDERED: MORPHINE SULFATE 4 MG/ML SYR/VIAL IV PRN (11:00)
[2021-01-24] MEDS ORDERED: HYDROmorphone HCL 2 MG/ML VL IV PRN ×2 (11:00→12:15)
[2021-01-24] MEDS ORDERED: diphenhdrAMINE HCL 50 MG/1 ML VL IV PRN (11:00)
[2021-01-24] MEDS: LACTATED RINGER'S 1,000 ML IV SCH ×2 (12:00→14:00)
[2021-01-24] MEDS ORDERED: NITROGLYCERIN 0.4 MG SL TAB SL PRN (12:15)
[2021-01-24] MEDS ORDERED: MORPHINE SULFATE INJECTION 2 MG/ML SYRG IV PRN (12:15)
[2021-01-24] MEDS ORDERED: ONDANSETRON HCL 4 MG/2 ML VIAL IV PRN (12:15)
[2021-01-24] MEDS ORDERED: ACETAMINOPHEN 325 MG TAB PO PRN (12:15)
[2021-01-24] MEDS: SODIUM CHLOR 0.9% PF (SALINE LOCK) 10ML VIAL/SYR IV SCH ×2 (14:00→22:20)
[2021-01-24] MEDS: KETOROLAC TROMETH 30 MG/ML 1ML VIAL IV SCH (18:49)
[2021-01-24] MEDS: CLINDAMYCIN 600MG IV 50 ML IV SCH (18:49)
[2021-01-24 19:52] VITALS: BP 158/77
[2021-01-24 21:00] VITALS: BP 154/93
[2021-01-24 22:00] VITALS: BP_SYST 151; BP_SYST 153; BP_DIAS 77; BP_DIAS 93
[2021-01-24] MEDS: DOCUSATE SOD 100 MG CAP PO SCH (22:00)
[2021-01-24] MEDS: ATORVASTATIN 20 MG TAB PO SCH (22:20)
[2021-01-24 23:00] VITALS: BP 144/77
[2021-01-25] VITALS (20 sets, daily range): BP systolic 113–164; BP diastolic 59–106
[2021-01-25] MEDS: KETOROLAC TROMETH 30 MG/ML 1ML VIAL IV SCH ×4 (05:43→17:39)
[2021-01-25] MEDS: SODIUM CHLOR 0.9% PF (SALINE LOCK) 10ML VIAL/SYR IV SCH ×3 (05:43→22:19)
[2021-01-25] MEDS: CLINDAMYCIN 600MG IV 50 ML IV SCH ×2 (05:43)
[2021-01-25 07:12] LABS: Hematocrit 41.4 % (41.0-53.0); Hemoglobin 14.4 g/dL (13.5-17.5)
[2021-01-25 07:28] LABS: Calcium 8.1 mg/dL (8.5-10.1); Potassium 3.9 mmol/L (3.5-5.1)
[2021-01-25 07:31] LABS: BUN/Creatinine Ratio 32.1; Total Protein 5.9 g/dL (6.4-8.2)
[2021-01-25] MEDS: LACTATED RINGER'S 1,000 ML IV SCH (08:15)
[2021-01-25] MEDS: ENOXAPARIN SOD 40 MG/0.4 ML SYRINGE SC SCH (09:33)
[2021-01-25] MEDS: DOCUSATE SOD 100 MG CAP PO SCH ×2 (09:33→22:34)
[2021-01-25] MEDS: ATORVASTATIN 20 MG TAB PO SCH (22:19)
[2021-01-26] MEDS: KETOROLAC TROMETH 30 MG/ML 1ML VIAL IV SCH (00:09)
[2021-01-26] MEDS: SODIUM CHLOR 0.9% PF (SALINE LOCK) 10ML VIAL/SYR IV SCH ×3 (05:30→21:49)
[2021-01-26 06:46] LABS: Hematocrit 43.3 % (41.0-53.0); Hemoglobin 14.7 g/dL (13.5-17.5)
[2021-01-26 08:30] VITALS: BP 155/81
[2021-01-26] MEDS: DOCUSATE SOD 100 MG CAP PO SCH ×2 (09:19→21:50)
[2021-01-26] MEDS: ENOXAPARIN SOD 40 MG/0.4 ML SYRINGE SC SCH (09:19)
[2021-01-26 13:00] VITALS: BP 140/78
[2021-01-26 17:00] VITALS: BP 155/91
[2021-01-26] MEDS: ATORVASTATIN 20 MG TAB PO SCH (21:50)
[2021-01-26 22:05] VITALS: BP 166/91
[2021-01-26] MEDS ORDERED: cloNIDine HCL 0.1 MG TAB PO ONE (22:45)
[2021-01-27 00:08] VITALS: BP 139/71
[2021-01-27 05:05] VITALS: BP 148/78
[2021-01-27] MEDS: SODIUM CHLOR 0.9% PF (SALINE LOCK) 10ML VIAL/SYR IV SCH ×3 (06:07→21:32)
[2021-01-27 06:52] LABS: Hematocrit 39.5 % (41.0-53.0)
[2021-01-27 08:35] VITALS: BP 128/74
[2021-01-27] MEDS: DOCUSATE SOD 100 MG CAP PO SCH (10:00)
[2021-01-27] MEDS: ENOXAPARIN SOD 40 MG/0.4 ML SYRINGE SC SCH (10:20)
[2021-01-27 12:23] VITALS: BP 135/63
[2021-01-27] MEDS: OXYCODONE W/ ACETAMINOPHEN 5/325MG TABLET PO PRN ×2 (14:20→21:34)
[2021-01-27 16:42] VITALS: BP 106/62
[2021-01-27] MEDS: ATORVASTATIN 20 MG TAB PO SCH (21:33)
[2021-01-27 22:00] VITALS: BP 135/75
[2021-01-28 05:00] VITALS: BP 138/70
[2021-01-28] MEDS: SODIUM CHLOR 0.9% PF (SALINE LOCK) 10ML VIAL/SYR IV SCH (06:00)
[2021-01-28 09:00] VITALS: BP 156/75
[2021-01-28] MEDS: ENOXAPARIN SOD 40 MG/0.4 ML SYRINGE SC SCH (09:49)
[2021-01-28] MEDS: OXYCODONE W/ ACETAMINOPHEN 5/325MG TABLET PO PRN (09:50)
[2021-01-28 12:12] VITALS: BP 139/71
== END 2021-01-28 12:30 | disposition home health service (06) | DRG 470 ==
LOC: SUR 07:26 → TELE 12:02 → TELE-CENTR 16:25 → CENTRAL 01-27 12:49
PROVIDERS: ADMIT Orthopaedic Surgery Adult Reconstructive Orthopaedic Surgery; ATTEND Internal Medicine
PROC: 8E0YXBG Computer Assisted Procedure of Lower Extremity, With Computerized Tomography (ICD-10-PCS; 2021-01-24)
PROC: 0SRC0J9 Replacement of Right Knee Joint with Synthetic Substitute, Cemented, Open Approach (ICD-10-PCS; principal; 2021-01-24 10:02)
DX: M17.11 Unilateral primary osteoarthritis, right knee (principal); M21.161 Varus deformity, not elsewhere classified, right knee; E78.5 Hyperlipidemia, unspecified; I10 Essential (primary) hypertension; Z20.822 Contact with and (suspected) exposure to COVID-19; Z88.0 Allergy status to penicillin; Z88.8 Allergy status to other drugs, medicaments and biological substances; Z79.899 Other long term (current) drug therapy
CPT/HCPCS: 36415; 73562; 80053; 81001; 85014; 85018; 85025; 85610; 85730; 86850; 86900; 86901; 93005; 97110; 97116; 97530; G0378; J0131; J0171; J1885; J2250; J2405; J3490

== ENCOUNTER → 2021-08-17 | Outpatient (CLI) | payer OTHER, MEDICARE ==
[2021-08-17 11:05] LABS: Basophils # (auto) 0.1 10 ^3/uL (0-0.2); Basophils % (auto) 1.5 % (0.0-2.0); Eosinophils # (auto) 0.4 10 ^3/uL (0-0.8); Eosinophils % (auto) 4.3 % (0.0-7.0); Hemoglobin 16.4 g/dL (13.5-17.5); Lymphocytes # (auto) 1.6 10 ^3/uL (0.4-5.4); Mean Corpuscular Hemoglobin 31.4 pg (28.0-32.0); Mean Corpuscular Hgb Conc. 34.1 g/dL (32.0-36.0); Mean Corpuscular Volume 92.1 fL (80.0-100.0); Monocytes # (auto) 0.5 10 ^3/uL (0-1.3); Monocytes % (auto) 5.7 % (0.0-12.0); Neutrophils # (auto) 6.3 10 ^3/uL (1.6-8.6); Neutrophils % (auto) 70.5 % (37.0-80.0); Nucleated Red Blood Cells % 0.1 %; Red Blood Cells 5.21 10^6/uL (4.5-5.90); Red Cell Distribution Width 14.2 % (11.8-14.3); White Blood Cell 8.9 10^3/uL (4.4-10.8)
[2021-08-17 12:02] LABS: Calcium 9.6 mg/dL (8.5-10.1); Potassium 4.3 mmol/L (3.5-5.1)
[2021-08-17 12:05] LABS: Albumin 3.9 g/dL (3.4-5.0)
[2021-08-17 12:08] LABS: Bilirubin, Total 0.6 mg/dL (0.2-1.0)
== END | disposition home or self-care (01) ==
LOC: LAB 10:31
PROVIDERS: ATTEND Internal Medicine
DX: C61 Malignant neoplasm of prostate (principal); Z88.0 Allergy status to penicillin
CPT/HCPCS: 36415; 80053; 83615; 84153; 84154; 84403; 85025

== ENCOUNTER → 2021-09-05 | Outpatient (CLI) | payer OTHER, MEDICARE ==
[2021-09-05 10:40] LABS: Basophils # (auto) 0.1 10 ^3/uL (0-0.2); Eosinophils # (auto) 0.5 10 ^3/uL (0-0.8); Eosinophils % (auto) 6.2 % (0.0-7.0); Hematocrit 43.9 % (41.0-53.0); Hemoglobin 14.6 g/dL (13.5-17.5); Lymphocytes # (auto) 1.4 10 ^3/uL (0.4-5.4); Lymphocytes % (auto) 18.7 % (10.0-50.0); Mean Corpuscular Hemoglobin 30.9 pg (28.0-32.0); Mean Corpuscular Hgb Conc. 33.3 g/dL (32.0-36.0); Mean Corpuscular Volume 92.9 fL (80.0-100.0); Monocytes # (auto) 0.7 10 ^3/uL (0-1.3); Monocytes % (auto) 8.7 % (0.0-12.0); Neutrophils % (auto) 65.4 % (37.0-80.0); Red Blood Cells 4.72 10^6/uL (4.5-5.90); Red Cell Distribution Width 14.5 % (11.8-14.3); White Blood Cell 7.7 10^3/uL (4.4-10.8)
[2021-09-05 12:10] LABS: Albumin 3.7 g/dL (3.4-5.0); BUN/Creatinine Ratio 26.1; Potassium 4.3 mmol/L (3.5-5.1)
[2021-09-05 12:13] LABS: Bilirubin, Total 0.7 mg/dL (0.2-1.0); Total Protein 7.3 g/dL (6.4-8.2)
== END | disposition home or self-care (01) ==
LOC: LAB 09:58
PROVIDERS: ATTEND Internal Medicine
DX: C61 Malignant neoplasm of prostate (principal)
CPT/HCPCS: 36415; 80053; 83615; 84153; 84154; 85025

== ENCOUNTER → 2021-11-08 | Outpatient (CLI) | payer OTHER ==
[2021-11-08 11:10] LABS: Basophils # (auto) 0.1 10 ^3/uL (0-0.2); Eosinophils # (auto) 0.5 10 ^3/uL (0-0.8); Eosinophils % (auto) 5.9 % (0.0-7.0); Hematocrit 42.7 % (41.0-53.0); Hemoglobin 14.8 g/dL (13.5-17.5); Lymphocytes # (auto) 2.3 10 ^3/uL (0.4-5.4); Lymphocytes % (auto) 27.9 % (10.0-50.0); Mean Corpuscular Hemoglobin 32.2 pg (28.0-32.0); Mean Corpuscular Hgb Conc. 34.6 g/dL (32.0-36.0); Mean Corpuscular Volume 93.1 fL (80.0-100.0); Monocytes # (auto) 0.7 10 ^3/uL (0-1.3); Monocytes % (auto) 8.9 % (0.0-12.0); Neutrophils # (auto) 4.6 10 ^3/uL (1.6-8.6); Neutrophils % (auto) 56.3 % (37.0-80.0); Nucleated Red Blood Cells % 0.1 %; Red Blood Cells 4.59 10^6/uL (4.5-5.90); Red Cell Distribution Width 14.4 % (11.8-14.3); White Blood Cell 8.1 10^3/uL (4.4-10.8)
[2021-11-08 11:42] LABS: Albumin 3.6 g/dL (3.4-5.0)
[2021-11-08 11:45] LABS: BUN/Creatinine Ratio 23.1; Bilirubin, Total 0.6 mg/dL (0.2-1.0); Total Protein 7.6 g/dL (6.4-8.2)
== END | disposition home or self-care (01) ==
LOC: LAB 10:52
PROVIDERS: ATTEND Internal Medicine
DX: C61 Malignant neoplasm of prostate (principal)
CPT/HCPCS: 36415; 80053; 83615; 84153; 84403; 85025

== ENCOUNTER → 2021-12-29 | Day surgery (SDC) | payer OTHER ==
[2021-12-26 12:09] LABS: Basophils # (auto) 0.1 10 ^3/uL (0-0.2); Basophils % (auto) 1.1 % (0.0-2.0); Eosinophils # (auto) 0.5 10 ^3/uL (0-0.8); Eosinophils % (auto) 6.7 % (0.0-7.0); Hematocrit 43.4 % (41.0-53.0); Hemoglobin 14.8 g/dL (13.5-17.5); Lymphocytes # (auto) 1.8 10 ^3/uL (0.4-5.4); Lymphocytes % (auto) 21.4 % (10.0-50.0); Mean Corpuscular Hemoglobin 31.9 pg (28.0-32.0); Mean Corpuscular Volume 93.7 fL (80.0-100.0); Monocytes # (auto) 0.7 10 ^3/uL (0-1.3); Monocytes % (auto) 8.7 % (0.0-12.0); Neutrophils # (auto) 5.1 10 ^3/uL (1.6-8.6); Neutrophils % (auto) 62.1 % (37.0-80.0); Red Blood Cells 4.63 10^6/uL (4.5-5.90); Red Cell Distribution Width 14.2 % (11.8-14.3); White Blood Cell 8.2 10^3/uL (4.4-10.8)
[2021-12-26 12:25] LABS: INR 1.03 (0.9-1.15); Partial Thromboplastin Time 27.5 sec (23.6-33.0)
[2021-12-26 12:35] LABS: Albumin 3.8 g/dL (3.4-5.0); Calcium 9.6 mg/dL (8.5-10.1); Potassium 4.3 mmol/L (3.5-5.1)
[2021-12-26 12:38] LABS: BUN/Creatinine Ratio 21.4
[2021-12-26 12:39] LABS: Urine Bacteria NONE SEEN /hpf (None Seen); Urine Blood Negative /uL (Negative); Urine Mucus FEW (None Seen); Urine Specific Gravity 1.023 (1.001-1.035); Urine WBC 2 /hpf (0 - 3)
[2021-12-26 12:40] LABS: Bilirubin, Total 0.6 mg/dL (0.2-1.0); Total Protein 7.8 g/dL (6.4-8.2)
[~2021-12-29] VITALS: Ht 188 cm; Wt 96.2 kg
[~2021-12-29] MED LIST changes: +CIPROFLOXACIN 400MG/200ML 200 ML IV ONE; +HYDROmorphone HCL 2 MG/ML VL/or syr IV PRN; +LIDOCAINE 2% (LOCAL ANESTH.) PF 5ml SDV ONE; +MIDAZOLAM HCL 2MG/2ML 2ml VIAL (1mg/ml) ONE; +ONDANSETRON HCL 4 MG/2 ML VIAL IV PRN; +ONDANSETRON HCL 4 MG/2 ML VIAL ONE; +PROPOFOL 10 MG/ML 20 ML IV ONE; +fentaNYL CITRATE 100 MCG/2 ML VL ONE
[2021-12-29 11:30] VITALS: BP 157/86
== END | disposition home or self-care (01) ==
LOC: SUR 07:49
PROVIDERS: ATTEND Urology
DX: N20.0 Calculus of kidney (principal); E78.5 Hyperlipidemia, unspecified; Z96.653 Presence of artificial knee joint, bilateral; Z96.643 Presence of artificial hip joint, bilateral; Z88.0 Allergy status to penicillin; Z88.1 Allergy status to other antibiotic agents; Z20.822 Contact with and (suspected) exposure to COVID-19; Z85.46 Personal history of malignant neoplasm of prostate
CPT/HCPCS: 36415; 50590; 80053; 81001; 85025; 85610; 85730; 87086; J0744; J2001; J2250; J2405; J2704; J3010; U0003

== ENCOUNTER → 2022-01-12 | Outpatient (CLI) | payer OTHER ==
[~2022-01-12] MED LIST changes: -CIPROFLOXACIN 400MG/200ML 200 ML IV ONE; -HYDROmorphone HCL 2 MG/ML VL/or syr IV PRN; -LIDOCAINE 2% (LOCAL ANESTH.) PF 5ml SDV ONE; -MIDAZOLAM HCL 2MG/2ML 2ml VIAL (1mg/ml) ONE; -ONDANSETRON HCL 4 MG/2 ML VIAL IV PRN; -ONDANSETRON HCL 4 MG/2 ML VIAL ONE; -PROPOFOL 10 MG/ML 20 ML IV ONE; -fentaNYL CITRATE 100 MCG/2 ML VL ONE
[2022-01-12 16:08] LABS: Urine Bacteria NONE SEEN /hpf (None Seen); Urine Blood Negative /uL (Negative); Urine Specific Gravity 1.017 (1.001-1.035); Urine WBC 1 /hpf (0 - 3)
== END | disposition home or self-care (01) ==
LOC: LAB 15:47
PROVIDERS: ATTEND Urology
DX: N39.0 Urinary tract infection, site not specified (principal); N20.0 Calculus of kidney; Z87.442 Personal history of urinary calculi
CPT/HCPCS: 81001; 87086

== ENCOUNTER → 2022-04-19 | Outpatient (CLI) | payer OTHER ==
[2022-04-19 11:35] LABS: Basophils # (auto) 0.1 10 ^3/uL (0-0.2); Basophils % (auto) 1.3 % (0.0-2.0); Eosinophils # (auto) 0.8 10 ^3/uL (0-0.8); Eosinophils % (auto) 7.4 % (0.0-7.0); Hematocrit 45.3 % (41.0-53.0); Hemoglobin 14.6 g/dL (13.5-17.5); Lymphocytes # (auto) 2.1 10 ^3/uL (0.4-5.4); Lymphocytes % (auto) 20.4 % (10.0-50.0); Mean Corpuscular Hemoglobin 29.9 pg (28.0-32.0); Mean Corpuscular Hgb Conc. 32.2 g/dL (32.0-36.0); Mean Corpuscular Volume 92.8 fL (80.0-100.0); Monocytes # (auto) 0.8 10 ^3/uL (0-1.3); Monocytes % (auto) 7.5 % (0.0-12.0); Neutrophils # (auto) 6.7 10 ^3/uL (1.6-8.6); Neutrophils % (auto) 63.4 % (37.0-80.0); Nucleated Red Blood Cells % 0.1 %; Red Blood Cells 4.88 10^6/uL (4.5-5.90); Red Cell Distribution Width 14.6 % (11.8-14.3); White Blood Cell 10.5 10^3/uL (4.4-10.8)
[2022-04-19 12:58] LABS: Albumin 3.9 g/dL (3.4-5.0); Calcium 9.6 mg/dL (8.5-10.1); Potassium 4.4 mmol/L (3.5-5.1)
[2022-04-19 13:03] LABS: BUN/Creatinine Ratio 18.5; Bilirubin, Total 0.7 mg/dL (0.2-1.0); Total Protein 7.5 g/dL (6.4-8.2)
== END | disposition home or self-care (01) ==
LOC: LAB 11:18
PROVIDERS: ATTEND Internal Medicine
DX: C61 Malignant neoplasm of prostate (principal)
CPT/HCPCS: 36415; 80053; 83615; 84153; 85025

== ENCOUNTER → 2022-05-09 | Outpatient (CLI) | payer OTHER ==
[2022-05-09 10:47] LABS: Basophils # (auto) 0.1 10 ^3/uL (0-0.2); Basophils % (auto) 1.1 % (0.0-2.0); Eosinophils # (auto) 0.6 10 ^3/uL (0-0.8); Eosinophils % (auto) 7.5 % (0.0-7.0); Hematocrit 41.6 % (41.0-53.0); Hemoglobin 13.7 g/dL (13.5-17.5); Lymphocytes # (auto) 2.1 10 ^3/uL (0.4-5.4); Lymphocytes % (auto) 24.2 % (10.0-50.0); Mean Corpuscular Hemoglobin 30.3 pg (28.0-32.0); Mean Corpuscular Hgb Conc. 32.9 g/dL (32.0-36.0); Mean Corpuscular Volume 92.2 fL (80.0-100.0); Monocytes # (auto) 0.6 10 ^3/uL (0-1.3); Monocytes % (auto) 7.1 % (0.0-12.0); Neutrophils # (auto) 5.1 10 ^3/uL (1.6-8.6); Neutrophils % (auto) 60.1 % (37.0-80.0); Red Blood Cells 4.51 10^6/uL (4.5-5.90); Red Cell Distribution Width 14.3 % (11.8-14.3); White Blood Cell 8.5 10^3/uL (4.4-10.8)
[2022-05-09 11:07] LABS: Albumin 3.6 g/dL (3.4-5.0); Calcium 9.3 mg/dL (8.5-10.1); Potassium 4.2 mmol/L (3.5-5.1)
[2022-05-09 11:12] LABS: BUN/Creatinine Ratio 23.6; Bilirubin, Total 0.6 mg/dL (0.2-1.0)
== END | disposition home or self-care (01) ==
LOC: LAB 10:25
PROVIDERS: ATTEND Internal Medicine
DX: C61 Malignant neoplasm of prostate (principal); Z88.0 Allergy status to penicillin
CPT/HCPCS: 36415; 80053; 83615; 84153; 85025

== ENCOUNTER → 2022-07-24 | Outpatient (CLI) | payer OTHER ==
[2022-07-24 12:23] LABS: Basophils # (auto) 0.1 10 ^3/uL (0-0.2); Basophils % (auto) 1.3 % (0.0-2.0); Eosinophils # (auto) 0.6 10 ^3/uL (0-0.8); Eosinophils % (auto) 6.7 % (0.0-7.0); Hematocrit 41.2 % (41.0-53.0); Hemoglobin 14.1 g/dL (13.5-17.5); Lymphocytes # (auto) 1.7 10 ^3/uL (0.4-5.4); Lymphocytes % (auto) 19.2 % (10.0-50.0); Mean Corpuscular Hemoglobin 31.6 pg (28.0-32.0); Mean Corpuscular Hgb Conc. 34.1 g/dL (32.0-36.0); Mean Corpuscular Volume 92.6 fL (80.0-100.0); Monocytes # (auto) 0.7 10 ^3/uL (0-1.3); Monocytes % (auto) 7.7 % (0.0-12.0); Neutrophils # (auto) 5.8 10 ^3/uL (1.6-8.6); Neutrophils % (auto) 65.1 % (37.0-80.0); Red Blood Cells 4.45 10^6/uL (4.5-5.90); Red Cell Distribution Width 14.4 % (11.8-14.3); White Blood Cell 8.8 10^3/uL (4.4-10.8)
[2022-07-24 12:45] LABS: Potassium 4.3 mmol/L (3.5-5.1)
[2022-07-24 12:50] LABS: Albumin 3.6 g/dL (3.4-5.0); BUN/Creatinine Ratio 22.3; Bilirubin, Total 0.4 mg/dL (0.2-1.0); Calcium 9.2 mg/dL (8.5-10.1); Total Protein 7.7 g/dL (6.4-8.2)
== END | disposition home or self-care (01) ==
LOC: LAB 11:52
PROVIDERS: ATTEND Internal Medicine
DX: C61 Malignant neoplasm of prostate (principal); Z88.0 Allergy status to penicillin
CPT/HCPCS: 36415; 80053; 83615; 84153; 85025

== ENCOUNTER → 2022-10-25 | Outpatient (CLI) | payer OTHER ==
[2022-10-25 10:16] LABS: Urine Bacteria NONE SEEN /hpf (None Seen); Urine Blood Negative /uL (Negative); Urine Mucus FEW (None Seen); Urine Specific Gravity 1.021 (1.001-1.035); Urine WBC 1 /hpf (0 - 3)
[2022-10-25 10:22] LABS: Basophils # (auto) 0.1 10 ^3/uL (0-0.2); Eosinophils # (auto) 0.7 10 ^3/uL (0-0.8); Eosinophils % (auto) 9.3 % (0.0-7.0); Hematocrit 42.8 % (41.0-53.0); Hemoglobin 14.6 g/dL (13.5-17.5); Lymphocytes # (auto) 1.9 10 ^3/uL (0.4-5.4); Lymphocytes % (auto) 23.5 % (10.0-50.0); Mean Corpuscular Hemoglobin 31.4 pg (28.0-32.0); Mean Corpuscular Volume 92.4 fL (80.0-100.0); Monocytes # (auto) 0.6 10 ^3/uL (0-1.3); Monocytes % (auto) 7.8 % (0.0-12.0); Neutrophils # (auto) 4.6 10 ^3/uL (1.6-8.6); Neutrophils % (auto) 58.4 % (37.0-80.0); Nucleated Red Blood Cells % 0.1 %; Red Blood Cells 4.63 10^6/uL (4.5-5.90); Red Cell Distribution Width 14.7 % (11.8-14.3); White Blood Cell 7.9 10^3/uL (4.4-10.8)
[2022-10-25 11:28] LABS: Albumin 3.7 g/dL (3.4-5.0); BUN/Creatinine Ratio 26.8 (10.0-20.0); Calcium 9.7 mg/dL (8.5-10.1); Magnesium 2.2 mg/dL (1.6-2.6); Total Protein 7.8 g/dL (6.4-8.2)
[2022-10-25 11:36] LABS: Bilirubin, Total 0.7 mg/dL (0.2-1.0); Potassium 4.1 mmol/L (3.5-5.1)
[2022-10-25 11:45] LABS: Thyroid Stimulating Hormone 4.67 uIU/mL (0.358-3.74)
== END | disposition home or self-care (01) ==
LOC: LAB 09:34
PROVIDERS: ATTEND Nurse Practitioner
DX: I10 Essential (primary) hypertension (principal); E78.5 Hyperlipidemia, unspecified
CPT/HCPCS: 36415; 80053; 80061; 81001; 82306; 83615; 83735; 84153; 84154; 84443; 85025

== ENCOUNTER → 2022-11-10 | Outpatient (CLI) | payer OTHER | END | disposition home or self-care (01) | LOC: LAB 14:30 | PROVIDERS: ATTEND Family Medicine | DX: D09.8 Carcinoma in situ of other specified sites (principal) | CPT/HCPCS: 88302 ==

== ENCOUNTER → 2022-12-15 | Outpatient (CLI) | payer OTHER | END | disposition home or self-care (01) | LOC: LAB 14:45 | PROVIDERS: ATTEND Family Medicine | DX: D04.4 Carcinoma in situ of skin of scalp and neck (principal) | CPT/HCPCS: 88302 ==

== ENCOUNTER → 2023-01-24 | Outpatient (CLI) | payer OTHER ==
[~2023-01-24] MED LIST changes: -SIMV-8 PO; +SIMV20TA20 PO
[2023-01-24 09:34] LABS: Basophils # (auto) 0.1 10 ^3/uL (0-0.2); Basophils % (auto) 1.2 % (0.0-2.0); Eosinophils # (auto) 0.6 10 ^3/uL (0-0.8); Eosinophils % (auto) 7.1 % (0.0-7.0); Hematocrit 44.3 % (41.0-53.0); Hemoglobin 14.8 g/dL (13.5-17.5); Lymphocytes # (auto) 2.1 10 ^3/uL (0.4-5.4); Lymphocytes % (auto) 23.3 % (10.0-50.0); Mean Corpuscular Hemoglobin 31.1 pg (28.0-32.0); Mean Corpuscular Hgb Conc. 33.5 g/dL (32.0-36.0); Mean Corpuscular Volume 92.7 fL (80.0-100.0); Monocytes # (auto) 0.7 10 ^3/uL (0-1.3); Monocytes % (auto) 7.6 % (0.0-12.0); Neutrophils # (auto) 5.4 10 ^3/uL (1.6-8.6); Neutrophils % (auto) 60.8 % (37.0-80.0); Nucleated Red Blood Cells % 0.2 %; Red Blood Cells 4.77 10^6/uL (4.5-5.90); Red Cell Distribution Width 14.6 % (11.8-14.3)
[2023-01-24 10:17] LABS: Albumin 3.9 g/dL (3.4-5.0); Calcium 9.1 mg/dL (8.5-10.1); Potassium 4.4 mmol/L (3.5-5.1)
[2023-01-24 10:21] LABS: BUN/Creatinine Ratio 21.1 (10.0-20.0); Bilirubin, Total 0.7 mg/dL (0.2-1.0); Total Protein 8.2 g/dL (6.4-8.2)
== END | disposition home or self-care (01) ==
LOC: LAB 09:19
PROVIDERS: ATTEND Internal Medicine
DX: C61 Malignant neoplasm of prostate (principal); Z88.1 Allergy status to other antibiotic agents
CPT/HCPCS: 36415; 80053; 83615; 84153; 84403; 85025

== ENCOUNTER → 2023-02-12 | Outpatient (CLI) | payer OTHER ==
[2023-02-12 09:50] LABS: Basophils # (auto) 0.1 10 ^3/uL (0-0.2); Basophils % (auto) 1.1 % (0.0-2.0); Eosinophils # (auto) 0.5 10 ^3/uL (0-0.8); Eosinophils % (auto) 7.2 % (0.0-7.0); Hematocrit 44.9 % (41.0-53.0); Hemoglobin 14.9 g/dL (13.5-17.5); Lymphocytes # (auto) 1.7 10 ^3/uL (0.4-5.4); Lymphocytes % (auto) 23.3 % (10.0-50.0); Mean Corpuscular Hemoglobin 30.7 pg (28.0-32.0); Mean Corpuscular Hgb Conc. 33.3 g/dL (32.0-36.0); Mean Corpuscular Volume 92.3 fL (80.0-100.0); Monocytes # (auto) 0.7 10 ^3/uL (0-1.3); Monocytes % (auto) 9.5 % (0.0-12.0); Neutrophils # (auto) 4.3 10 ^3/uL (1.6-8.6); Neutrophils % (auto) 58.9 % (37.0-80.0); Nucleated Red Blood Cells % 0.1 %; Red Blood Cells 4.86 10^6/uL (4.5-5.90); Red Cell Distribution Width 14.7 % (11.8-14.3); White Blood Cell 7.3 10^3/uL (4.4-10.8)
[2023-02-12 10:33] LABS: Potassium 4.5 mmol/L (3.5-5.1)
[2023-02-12 10:49] LABS: Urine Bacteria NONE SEEN /hpf (None Seen); Urine Blood Negative /uL (Negative); Urine Mucus FEW (None Seen); Urine WBC 1 /hpf (0 - 3)
[2023-02-12 10:56] LABS: Albumin 3.8 g/dL (3.4-5.0); BUN/Creatinine Ratio 23.1 (10.0-20.0); Bilirubin, Total 0.7 mg/dL (0.2-1.0); Calcium 9.8 mg/dL (8.5-10.1)
== END | disposition home or self-care (01) ==
LOC: LAB 09:31
PROVIDERS: ATTEND Nurse Practitioner
DX: I10 Essential (primary) hypertension (principal); E78.5 Hyperlipidemia, unspecified; R73.9 Hyperglycemia, unspecified
CPT/HCPCS: 36415; 80053; 80061; 81001; 83036; 84443; 85025

== ENCOUNTER → 2023-03-21 | Outpatient (CLI) | payer OTHER ==
[2023-03-21 14:54] LABS: Basophils # (auto) 0.1 10 ^3/uL (0-0.2); Basophils % (auto) 1.1 % (0.0-2.0); Eosinophils # (auto) 0.5 10 ^3/uL (0-0.8); Eosinophils % (auto) 5.7 % (0.0-7.0); Hemoglobin 14.6 g/dL (13.5-17.5); Lymphocytes # (auto) 2.2 10 ^3/uL (0.4-5.4); Lymphocytes % (auto) 23.2 % (10.0-50.0); Mean Corpuscular Hemoglobin 31.2 pg (28.0-32.0); Mean Corpuscular Hgb Conc. 33.2 g/dL (32.0-36.0); Mean Corpuscular Volume 93.9 fL (80.0-100.0); Monocytes # (auto) 0.9 10 ^3/uL (0-1.3); Monocytes % (auto) 9.5 % (0.0-12.0); Neutrophils # (auto) 5.8 10 ^3/uL (1.6-8.6); Neutrophils % (auto) 60.5 % (37.0-80.0); Red Blood Cells 4.69 10^6/uL (4.5-5.90); Red Cell Distribution Width 15.6 % (11.8-14.3); White Blood Cell 9.6 10^3/uL (4.4-10.8)
[2023-03-21 16:01] LABS: Albumin 3.6 g/dL (3.4-5.0); Calcium 9.3 mg/dL (8.5-10.1); Potassium 4.2 mmol/L (3.5-5.1)
[2023-03-21 16:03] LABS: BUN/Creatinine Ratio 28.8 (10.0-20.0)
[2023-03-21 16:06] LABS: Bilirubin, Total 0.4 mg/dL (0.2-1.0); Total Protein 7.8 g/dL (6.4-8.2)
== END | disposition home or self-care (01) ==
LOC: LAB 14:37
PROVIDERS: ATTEND Internal Medicine
DX: C61 Malignant neoplasm of prostate (principal)
CPT/HCPCS: 36415; 80053; 83615; 84153; 85025

== ENCOUNTER 2023-05-25 12:10 | Emergency (ER) | payer OTHER ==
[~2023-05-25] VITALS: Ht 185.4 cm; Wt 100.0 kg
[2023-05-25 23:00] VITALS: BP 155/88; PULSE 72; RESP 20; O2SAT 96
== END 2023-05-25 23:14 | disposition home or self-care (01) ==
LOC: ER 12:10 → EDBD 12:10 → ER 23:11
DX: S49.92XA Unspecified injury of left shoulder and upper arm, initial encounter (principal); Z98.890 Other specified postprocedural states; W18.39XA Other fall on same level, initial encounter; Y93.89 Activity, other specified; Y92.89 Other specified places as the place of occurrence of the external cause; Y99.8 Other external cause status
CPT/HCPCS: 73030; 73080

== ENCOUNTER → 2023-08-08 | Outpatient (CLI) | payer OTHER ==
[2023-08-08 14:46] LABS: Basophils # (auto) 0.1 10 ^3/uL (0-0.2); Basophils % (auto) 1.2 % (0.0-2.0); Eosinophils # (auto) 0.6 10 ^3/uL (0-0.8); Hematocrit 40.9 % (41.0-53.0); Hemoglobin 13.5 g/dL (13.5-17.5); Lymphocytes # (auto) 1.6 10 ^3/uL (0.4-5.4); Lymphocytes % (auto) 19.7 % (10.0-50.0); Mean Corpuscular Hemoglobin 31.5 pg (28.0-32.0); Mean Corpuscular Hgb Conc. 33.1 g/dL (32.0-36.0); Mean Corpuscular Volume 95.3 fL (80.0-100.0); Monocytes # (auto) 0.8 10 ^3/uL (0-1.3); Monocytes % (auto) 9.7 % (0.0-12.0); Neutrophils # (auto) 5.2 10 ^3/uL (1.6-8.6); Neutrophils % (auto) 62.4 % (37.0-80.0); Nucleated Red Blood Cells % 0.1 %; Red Blood Cells 4.29 10^6/uL (4.5-5.90); Red Cell Distribution Width 14.6 % (11.8-14.3); White Blood Cell 8.3 10^3/uL (4.4-10.8)
[2023-08-08 15:38] LABS: Alanine Aminotransferase 24 U/L (7-40); Albumin 4.2 g/dL (3.2-4.8); Alkaline Phosphatase 95 U/L (46-116); Anion Gap 9 (5-15); Aspartate Aminotransferase 23 U/L (13-40); BUN/Creatinine Ratio 21.1 (10.0-20.0); Blood Urea Nitrogen 20 mg/dL (9-23); Calcium 9.6 mg/dL (8.5-10.1); Carbon Dioxide 24 mmol/L (20-30); Chloride 107 mmol/L (98-107); Glucose 102 mg/dL (74-106); Sodium 140 mmol/L (136-145)
[2023-08-08 15:39] LABS: Bilirubin, Total 0.5 mg/dL (0.2-1.0); Total Protein 7.2 g/dL (5.7-8.2)
== END | disposition home or self-care (01) ==
LOC: LAB 14:21
PROVIDERS: ATTEND Internal Medicine
DX: C61 Malignant neoplasm of prostate (principal); Z88.0 Allergy status to penicillin
CPT/HCPCS: 36415; 80053; 83615; 84153; 85025

== ENCOUNTER 2024-04-12 21:52 | Emergency (ER) | payer OTHER ==
[~2024-04-12] VITALS: Ht 190.5 cm; Wt 110.0 kg
[2024-04-12 22:15] VITALS: PULSE 71; RESP 16; O2SAT 94
[2024-04-12 22:30] LABS: Hematocrit 40.1 % (41.0-53.0); Hemoglobin 13.8 g/dL (13.5-17.5); Mean Corpuscular Hemoglobin 32.7 pg (28.0-32.0); Mean Corpuscular Hgb Conc. 34.4 g/dL (32.0-36.0); Mean Corpuscular Volume 95.1 fL (80.0-100.0); Platelet Count (auto) 244 10^3/uL (140-450); Red Blood Cells 4.21 10^6/uL (4.5-5.90); Red Cell Distribution Width 15.7 % (11.8-14.3); White Blood Cell 15.8 10^3/uL (4.4-10.8)
[2024-04-12 22:35] LABS: Chloride 110 mmol/L (98-107); Potassium 4.5 mmol/L (3.5-5.1); Sodium 142 mmol/L (136-145)
[2024-04-12 22:36] LABS: Anion Gap 11 (5-15); Calcium 10.2 mg/dL (8.7-10.4); Carbon Dioxide 21 mmol/L (20-30)
[2024-04-12 22:41] LABS: BUN/Creatinine Ratio 22.1 (10.0-20.0); Blood Urea Nitrogen 32 mg/dL (9-23); Glucose 166 mg/dL (74-106)
[2024-04-12 22:50] LABS: Basophils % (manual) 0 (0.0-2.0); Blast Cells 0; Metamyelocytes % 0; Myelocytes % 0; Promyelocytes % 0; Reactive Lymphocytes 0
[2024-04-12] MEDS: ENOXAPARIN SOD 120 MG/0.8 ML SYRINGE SC ONE (23:09)
[2024-04-12] MEDS: DIPHENOXYLATE W/ATROPINE 2.5 MG TAB PO ONE (23:09)
[2024-04-12] MEDS: SODIUM CHLORIDE 0.9% 1,000 ML IV ONE (23:43)
[2024-04-12] MEDS: metroNIDAZOLE 500MG/100ML 100 ML IV ONE (23:43)
[2024-04-12] MEDS: levoFLOXacin 500MG 100 ML IV ONE (23:43)
[2024-04-12 23:48] LABS: Band Neutrophils % (manual) 3; Eosinophils % (manual) 1 (0-7); Lymphocytes % (manual) 6 (10.0-50.0); Monocytes % (manual) 3 (0-12); Platelet Estimate Adequate
[2024-04-13] MEDS ORDERED: BACDST PO (06:34)
[2024-04-13 07:55] VITALS: BP 138/72; PULSE 72; RESP 16; TEMP 98.2; O2SAT 97
== END 2024-04-13 09:27 | disposition home or self-care (01) ==
LOC: EDUNIT# 21:52 → ER 21:52 → EDBD 21:52 → ER 04-13 04:11
DX: K52.9 Noninfective gastroenteritis and colitis, unspecified (principal); E78.5 Hyperlipidemia, unspecified; Z88.0 Allergy status to penicillin; Z88.8 Allergy status to other drugs, medicaments and biological substances; Z79.899 Other long term (current) drug therapy; Z90.49 Acquired absence of other specified parts of digestive tract
CPT/HCPCS: 36415; 80048; 84484; 85007; 85027; 93005; 96365; 96368; 96372; 99285; J1650; J1956; J3490; J7030